=== PATIENT | female | born 1990 | race Caucasian/White ===

== ENCOUNTER 2016-06-24 18:30 | Outpatient (CLI) | payer MEDICAID ==
[2016-06-24] MEDS ORDERED: Amoxicillin 500 MG Cap PO ONE (19:46)
== END 2016-06-24 20:30 | disposition home or self-care (01) ==
LOC: MW.OB 18:30 → MW.OBCHECK 18:30
PROVIDERS: ATTEND Obstetrics & Gynecology
DX: O47.03 False labor before 37 completed weeks of gestation, third trimester (principal); O26.893 Other specified pregnancy related conditions, third trimester; M54.5 Low back pain; R51 Headache; R11.0 Nausea
CPT/HCPCS: 59025; 81003; 87086; 87088; 87186; A9270

== ENCOUNTER 2016-07-07 07:49 | Emergency (ER) | payer MEDICAID | END 2016-07-07 07:58 | disposition still patient (30) | LOC: MW.ED 07:49 ==

== ENCOUNTER 2016-07-07 08:09 | Outpatient (CLI) | payer MEDICAID ==
[2016-07-07] MEDS ORDERED: Ondansetron 4 MG Tab.DIS PO ONE (08:42)
== END 2016-07-07 10:00 | disposition home or self-care (01) ==
LOC: MW.OBCHECK 08:09 → MW.OB 08:10 → MW.OBCHECK 10:00
PROVIDERS: ATTEND Obstetrics & Gynecology
DX: Z34.83 Encounter for supervision of other normal pregnancy, third trimester (principal); R10.30 Lower abdominal pain, unspecified; R11.0 Nausea; R14.3 Flatulence; Z3A.30 30 weeks gestation of pregnancy
CPT/HCPCS: 59025; 81001; A9270

== ENCOUNTER 2016-07-13 08:06 | Observation (INO) | payer MEDICAID ==
[2016-07-13] MEDS ORDERED: Betamethasone Acetate/Betamethasone Sod Phosphate 30 MG/5 ML MDV IM SCH ×2 (09:00→10:00)
[2016-07-13] MEDS ORDERED: Lactated Ringers 1,000 ML IV ONE (09:00)
[2016-07-13] MEDS ORDERED: Calcium Gluconate 10% 1 GM/10 ML SDV IVPUSH PRN (09:48)
[2016-07-13] MEDS ORDERED: Magnesium Sulfate/Water 4 GM in Premix Bag 1 BAG IV ONE (09:48)
[2016-07-13] MEDS ORDERED: Ampicillin 2 GM in Sodium Chloride 0.9% 100 ML IV ONE (10:00)
[2016-07-13] MEDS ORDERED: Ampicillin 2 GM in Sodium Chloride 0.9% 100 ML IV SCH (10:00)
[2016-07-13] MEDS ORDERED: Magnesium Sulfate/Water 40 GM/1,000 ML BAG IV SCH (10:00)
[2016-07-13] MEDS ORDERED: Lactated Ringers 1,000 ML IV SCH (10:45)
--- NOTE | 2016-07-13 12:40 | HP ---
DATE OF : 1990 PRIMARY CARE PHYSICIAN: None PCP CHIEF COMPLAINT: contractions. HISTORY: This is a 25-year-old female. She is G3, P0-2-0-1, EDC of 08/24/2016, currently at 34 and 0/7th weeks' gestation. Her care has been with Dr. Beverly. She has a history of a at 31 and 5/7th weeks' gestation in 2012. This infant was discharged home but at 2 months of life. Her second , she received 17 hydroxyprogesterone injections. She delivered at 36 weeks' gestation with an uncomplicated vaginal delivery, however, this baby was also transferred to the NICU in [place]. In this , she has been given oral micronized progesterone. She did have a urinary tract infection in this . She has a history of a kidney infection with her prior . She is blood type O positive, antibody negative. Group B strep has not yet been done. She is immune to rubella, immune to varicella. Negative for VDRL and hepatitis and HIV. PAST MEDICAL HISTORY: Significant for pyelonephritis. PAST SURGICAL HISTORY: None. ALLERGIES: She has no known drug allergies. MEDICATIONS: Micronized progesterone 200 mg orally and vitamins. REVIEW OF SYSTEMS: HEENT: Negative for headaches or visual changes. PULMONARY: Negative. CARDIOVASCULAR: Negative. GASTROINTESTINAL: Negative. GENITOURINARY: Negative, except for the current issue with contractions. DERMATOLOGIC: Negative. MUSCULOSKELETAL: Negative. PHYSICAL EXAMINATION: VITAL SIGNS: Blood pressure is 131/88, pulse is 71, heart tones 140s, moderate variability, accelerations present, no decelerations. Contractions are every 3 to 4 minutes on initial presentation; after IV hydration, every 5-6 minutes. GENERAL: She is alert and oriented, in no acute distress. NECK: Supple without lymphadenopathy or thyromegaly. LUNGS: Clear bilaterally. CARDIOVASCULAR: Regular rate without murmur. ABDOMEN: Soft, gravid, nontender. EXTREMITIES: Show trace edema. GENITOURINARY: Vaginal exam, 3 cm, 90%, -1 station. Changed from 2 cm at the time of initial presentation. ASSESSMENT AND PLAN: Admit the patient for labor, 34 weeks' gestation, due to late . I did offer steroid for some benefit for lung maturity and she does desire to proceed. We will obtain a group B strep culture, however, start group B strep prophylaxis until culture is available. She requests transfer to [place] if is imminent. I explained to her that I must stabilize her. For stabilization for transfer, I will start her on magnesium. Her contractions must resolve with no further cervical change before transfer is possible, otherwise she would deliver here and the would be transferred. She understands this plan. ALONZO RAVI /[id number]
[2016-07-13] MEDS ORDERED: Ampicillin 1 GM in Sodium Chloride 0.9% 50 ML IV SCH (14:00)
== END 2016-07-13 16:18 ==
LOC: MW.OBCHECK 08:06 → MW.OB 08:38 → MW.OBCHECK 12:03
PROVIDERS: ADMIT Obstetrics & Gynecology; ATTEND Obstetrics & Gynecology
DX: O60.03 Preterm labor without delivery, third trimester (principal); Z3A.34 34 weeks gestation of pregnancy
CPT/HCPCS: 36415; 59025; 81001; 85027; 86850; 86900; 86901; 87081; 96372; 96374; 96375; G0378; J0290; J0702; J3475; J7030; J7120

== ENCOUNTER 2016-07-31 02:40 | Outpatient (CLI) | payer MEDICAID ==
[2016-07-31 04:10] LABS: CHLORIDE,CL 109 mmol/L (98-110); SODIUM,NA 137 mmol/L (136-146)
[2016-07-31] MEDS ORDERED: hydrOXYzine Pamoate 25 MG Cap PO ONE (04:16)
[2016-07-31] MEDS ORDERED: Acetaminophen 500 MG Tab PO ONE (04:16)
== END 2016-07-31 09:25 | disposition home or self-care (01) ==
LOC: MW.OBCHECK 02:40 → MW.OB 02:40 → MW.OBCHECK 09:25
PROVIDERS: ATTEND Obstetrics & Gynecology
DX: O36.8130 Decreased fetal movements, third trimester, not applicable or unspecified (principal); Z3A.30 30 weeks gestation of pregnancy
CPT/HCPCS: 36415; 59025; 80053; 81003; 84550; 85025; A9270

== ENCOUNTER 2016-08-05 02:32 | Inpatient (IN) | payer MEDICAID ==
[2016-08-05] MEDS ORDERED: Nalbuphine 10 MG/1 ML Vial IVPUSH PRN (03:02)
[2016-08-05] MEDS ORDERED: Water For Irrigation,Sterile 1,000 ML Container IRR PRN (03:02)
[2016-08-05] MEDS ORDERED: Butorphanol 1 MG/ML SDV IVPUSH PRN (03:02)
[2016-08-05] MEDS ORDERED: Sodium Chloride 0.9% 10 ML Syringe FLUSH PRN (03:02)
[2016-08-05] MEDS ORDERED: Sodium Chloride 0.9% 2.5 ML Syringe FLUSH PRN (03:02)
[2016-08-05] MEDS ORDERED: Misoprostol 200 MCG Tab PO PRN (03:02)
[2016-08-05] MEDS ORDERED: Methylergonovine 0.2 MG/1 ML Amp IM PRN (03:02)
[2016-08-05] MEDS ORDERED: Lidocaine 1% 50 ML MDV INJECT PRN (03:02)
[2016-08-05] MEDS ORDERED: Carboprost Tromethamine 250 MCG/1 ML Amp IM PRN (03:02)
[2016-08-05] MEDS ORDERED: Oxytocin/Lactated Ringers 30 UNIT/500 ML BAG ONE (03:08)
[2016-08-05] MEDS ORDERED: Lidocaine 1% 50 ML MDV ONE (03:09)
[2016-08-05] MEDS ORDERED: Lactated Ringers 1,000 ML IV SCH (03:15)
[2016-08-05] MEDS ORDERED: Oxytocin/Lactated Ringers 30 UNIT/500 ML BAG IV SCH (03:15)
[2016-08-05] MEDS ORDERED: Ibuprofen 400 MG Tab PO PRN (03:35)
[2016-08-05] MEDS ORDERED: Bisacodyl 10 MG Supp RECTAL PRN (03:35)
[2016-08-05] MEDS ORDERED: Docusate Sodium 100 MG Cap PO PRN (03:35)
[2016-08-05] MEDS ORDERED: Lanolin 100% Cream 7 GM Tube TOP PRN (03:35)
[2016-08-05] MEDS ORDERED: Acetaminophen 500 MG Tab PO PRN (03:35)
[2016-08-05] MEDS ORDERED: Benzocaine/Menthol 20%-0.5% Spray 78 GM Cannister TOP PRN (03:35)
[2016-08-05] MEDS ORDERED: Witch Hazel Medicated Pads 40/Jar TOP PRN (03:35)
--- NOTE | 2016-08-05 03:35 | PCM.LDHP ---
L&D History of Present Illness - General Date of Service: 08/05/16 Admit Problem/Dx: Patient Status Order with Admit Dx/Problem 08/05/16 03:02 Patient Status [ADT] Routine Admission Diagnosis/Problem Admission Diagnosis/Problem - planned Source of Information: Patient History Limitations: Reports: No limitations - History of Present Illness Improves with: Reports: None Worsens with: Reports: None Associated Symptoms: Reports: N - Related Data Allergies/Adverse Reactions: Allergies Allergy/AdvReac Type Severity Reaction Status Date / Time No Known Allergies Allergy Verified 06/24/16 17:50 Home Medications: Home Meds [id number]/Iron Fumarate/FA/DSS [ 19 Tablet] 1 tab PO DAILY 01/15/16 [ History] Progesterone,Micronized [Progesterone] 100 mg PO 06/24/16 [History] Past Medical History - Past Health History Medical/Surgical History: Denies Medical/Surgical History Cardiovascular History: Reports: None Respiratory History: Reports: None Gastrointestinal History: Reports: None Genitourinary History: Reports: UTI, recurrent [employer]CH[employer] History: Reports: Musculoskeletal History: Reports: None Neurological History: Reports: None Psychiatric History: Reports: Anxiety, Depression Endocrine/Metabolic History: Reports: None Immunologic History: Reports: None Oncologic (Cancer) History: Reports: None - Infectious Disease History Infectious Disease History: Reports: Chicken pox - Past Surgical History HEENT Surgical History: Reports: Adenoidectomy, Tonsillectomy Cardiovascular Surgical History: Reports: None Respiratory Surgical History: Reports: None GI Surgical History: Reports: None Female Surgical History: Reports: None Neurological Surgical History: Reports: None Musculoskeletal Surgical History: Reports: None Dermatological Surgical History: Reports: None Social & Family History - Family History Family Medical History: Noncontributory Endocrine/Metabolic: Reports: Diabetes, type I, Diabetes, type II Oncologic: Reports: Leukemia - Tobacco Use Smoking Status *Q: Former Smoker Years of Tobacco use: 5 Packs/Tins Daily: 0.1 Used Tobacco, but Quit: Yes Month Tobacco Last Used: 9 Second Hand Smoke Exposure: No - Caffeine Use Caffeine Use: Reports: None - Recreational Drug Use Recreational Drug Use: No H&P Review of Systems - Review of Systems: Review Of Systems: See Below General: Reports: no symptoms HEENT: Reports: no symptoms Pulmonary: Reports: No Symptoms Cardiovascular: Reports: no symptoms Gastrointestinal: Reports: No symptoms Genitourinary: Reports: no symptoms Musculoskeletal: Reports: no symptoms Skin: Reports: no symptoms Psychiatric: Reports: no symptoms Neurological: Reports: No Symptoms Hematologic/Lymphatic: Reports: no symptoms Immunologic: Reports: no symptoms L&D Exam - Exam Exam: See Below - Vital Signs Weight: 77.111 kg - OB Specific Fundal Height in cm: 37 Contraction Intensity: Moderate movement: active heart tones: present Presentation: Vertex - Patient Data Lab Results last 24 hrs: Laboratory Results - last 24 hr 08/05/16 Range/Units 03:07 WBC 11.33 H (4.0-11.0) K/uL RBC 4.42 (4.30-5.90) M/uL Hgb 10.8 L (12.0-16.0) g/dL Hct 34.2 L (36.0-46.0) % MCV 77.4 L (80.0-98.0) fL MCH 24.4 L (27.0-32.0) pg MCHC 31.6 (31.0-37.0) g/dL RDW Std Deviation 43.0 (28.0-62.0) fl RDW Coeff of Rose 15 (11.0-15.0) % Plt Count 258 (150-400) K/uL MPV 10.60 (7.40-12.00) fL Nucleated RBC % 0.0 /100WBC Nucleated RBCs # 0 K/uL Result Diagrams: 08/05/16 03:07 Problem List Initiated/Reviewed/Updated: Yes Orders Last 24hrs: Active Orders 24 hr Category Date Time Status Patient Status [ADT] Routine ADT 08/05/16 03:02 Active Heart Tones [RC] CONTINUOUS Care 08/05/16 03:02 Active Non Stress Test [RC] PER UNIT ROUTINE Care 08/05/16 03:02 Active May Shower [RC] ASDIRECTED Care 08/05/16 03:02 Active Notify Provider [RC] PRN Care 08/05/16 03:02 Active Up ad Ashtyn [RC] ASDIRECTED Care 08/05/16 03:02 Active Vaginal Exam [RC] PRN Care 08/05/16 03:02 Active Vital Signs [RC] PER UNIT ROUTINE Care 08/05/16 03:02 Active TYPE AND SCREEN [BBK] Routine Lab 08/05/16 03:07 Received Butorphanol [Stadol] Med 08/05/16 03:02 Active 1 mg IVPUSH Q1H PRN Carboprost Tromethamine [Hemabate DS] Med 08/05/16 03:02 Active 250 mcg IM ASDIRECTED PRN Lactated Ringers [Ringers, Lactated] 1,000 ml Med 08/05/16 03:15 Active IV ASDIRECTED Lidocaine 1% [Xylocaine 1%] Med 08/05/16 03:02 Active 50 ml INJECT .ONCE PRN Methylergonovine [Methergine] Med 08/05/16 03:02 Active 0.2 mg IM ASDIRECTED PRN Misoprostol [Cytotec] Med 08/05/16 03:02 Active 200 mcg PO .ONCE PRN Nalbuphine [Nubain] Med 08/05/16 03:02 Active 10 mg IVPUSH Q1H PRN Oxytocin/Lactated Ringers [Pitocin in LR 30 Units/500 Med 08/05/16 03:15 Active ML] 30 unit in 500 ml IV TITRATE Sodium Chloride 0.9% [Saline Flush] Med 08/05/16 03:02 Active 10 ml FLUSH ASDIRECTED PRN Sodium Chloride 0.9% [Saline Flush] Med 08/05/16 03:02 Active 2.5 ml FLUSH ASDIRECTED PRN Water For Irrigation,Sterile [Sterile Water for Med 08/05/16 03:02 Active Irrigation] 1,000 ml IRR ASDIRECTED PRN Scalp Electrode [WOMSER] Per Unit Routine Oth 08/05/16 03:02 Ordered Peripheral IV Insertion Adult [OM.PC] Routine Oth 08/05/16 03:02 Ordered Resuscitation Status Routine Resus Stat 08/05/16 03:02 Ordered Medication Orders Butorphanol Tartrate (Stadol) 1 mg IVPUSH Q1H PRN PRN Reason: Pain Carboprost Tromethamine (Hemabate Ds) 250 mcg IM ASDIRECTED PRN PRN Reason: Post Hemorrhage Lactated Ringer's (Ringers, Lactated) 1,000 mls @ 150 mls/hr IV ASDIRECTED MACARIO Oxytocin/Lactated Ringer's (Pitocin In Lr 30 Units/500 Ml) 30 unit in 500 mls @ 999 mls/hr IV TITRATE MACARIO PRN Reason: 999 MUNITS/MIN Stop: 08/05/16 03:46 Lidocaine HCl (Xylocaine 1%) 50 ml INJECT .ONCE PRN PRN Reason: Laceration repair Methylergonovine Maleate (Methergine) 0.2 mg IM ASDIRECTED PRN PRN Reason: Post Hemorrhage Misoprostol (Cytotec) 200 mcg PO .ONCE PRN PRN Reason: Post Hemorrhage Nalbuphine HCl (Nubain) 10 mg IVPUSH Q1H PRN PRN Reason: Pain (severe 7-10) Stop: 08/05/16 05:03 Sodium Chloride (Saline Flush) 10 ml FLUSH ASDIRECTED PRN PRN Reason: Keep Vein Open Sodium Chloride (Saline Flush) 2.5 ml FLUSH ASDIRECTED PRN PRN Reason: Keep Vein Open Sterile Water (Sterile Water For Irrigation) 1,000 ml IRR ASDIRECTED PRN PRN Reason: delivery Assessment/Plan Comment:: Term in active labor CX.8-9/v/0 intact
--- NOTE | 2016-08-05 04:18 | OR ---
SURGEON: Reza Beverly MD DATE OF PROCEDURE: DELIVERY NOTE: Ms. Cruz is a 25-year-old patient. She is para 2-0-0-2. She is followed in our clinic in this delivery primarily seen by me and primarily is followed by Sameera Bartlett. The patient had no complication. She is term. She has presented to Labor and Delivery in active labor. At the time of admission, the patient was 9 cm, complete, vertex with bulging bag of water. heart rate was category 1 and contractions are moderate to severe, tolerated very well. The patient did have an artificial rupture of the membrane by me with clear fluid and she was able to accomplish normal spontaneous vaginal delivery of a male fetus. score is reported to be 7 and 9 and the weight is 8 pounds. The placenta delivered spontaneous, complete, and intact without any problem. There was no laceration. There is no need for episiotomy. Estimated blood loss in this delivery is 250 to 300 mL. No complication. ONOFRE / TRAV /[id number]
[2016-08-05] MEDS: Acetaminophen 500 MG Tab PO PRN ×3 (05:01→21:44)
[2016-08-05] MEDS: Ibuprofen 800 MG Tab PO PRN (11:00)
[2016-08-05] MEDS: oxyCODONE 5 MG Tab PO PRN (14:01)
[2016-08-06] MEDS: Ibuprofen 800 MG Tab PO PRN (04:44)
[2016-08-06] MEDS: oxyCODONE 5 MG Tab PO PRN (04:44)
[2016-08-06 08:26] VITALS: BP 136/85
--- NOTE | 2016-08-06 11:12 | PCM.DCSUM1 ---
Discharge Summary - Discharge Data Discharge Date: 08/06/16 Discharge Disposition: Home, Self-Care 01 Condition: Good - Discharge Plan Home Medications: Home Meds GDW125/Iron Fumarate/FA/DSS [ 19 Tablet] 1 tab PO DAILY 01/15/16 [ History] Progesterone,Micronized [Progesterone] 100 mg PO 06/24/16 [History] - General Info Date of Service: 08/06/16 Functional Status: Reports: pain controlled - Review of Systems General: Reports: No Symptoms HEENT: Reports: no symptoms Pulmonary: Reports: no symptoms Cardiovascular: Reports: No Symptoms Gastrointestinal: Reports: No symptoms Genitourinary: Reports: no symptoms Musculoskeletal: Reports: no symptoms Skin: Reports: no symptoms Neurological: Reports: No Symptoms Psychiatric: Reports: no symptoms - Patient Data Vitals - Most Recent: Last Vital Signs Temp 36.5 C 08/06/16 08:00 Pulse 96 08/06/16 08:00 Resp 15 08/06/16 08:00 BP 136/85 08/06/16 08:00 Pulse Ox 96 08/06/16 08:00 Weight - Most Recent: 77.111 kg Lab Results - Last 24 hrs: Laboratory Results - last 24 hr 08/06/16 Range/Units 04:43 Hgb 10.1 L (12.0-16.0) g/dL Hct 31.6 L (36.0-46.0) % Med Orders - Current: Current Medications Acetaminophen (Tylenol Extra Strength) 500 mg PO Q4H PRN PRN Reason: Pain Last Admin: 08/05/16 14:00 Dose: 500 mg Acetaminophen (Tylenol Extra Strength) 1,000 mg PO Q4H PRN PRN Reason: Pain Last Admin: 08/05/16 21:44 Dose: 1,000 mg Benzocaine/Menthol (Dermoplast Pain Relief 20%-0.5% [place]) 78 gm TOP ASDIRECTED PRN PRN Reason: Perineal Comfort Measure Bisacodyl (Dulcolax) 10 mg RECTAL .ONCE PRN PRN Reason: Constipation Butorphanol Tartrate (Stadol) 1 mg IVPUSH Q1H PRN PRN Reason: Pain Carboprost Tromethamine (Hemabate Ds) 250 mcg IM ASDIRECTED PRN PRN Reason: Post Hemorrhage Docusate Sodium (Colace) 100 mg PO BID PRN PRN Reason: Constipation Emollient Ointment (Lansinoh Hpa) 0 gm TOP ASDIRECTED PRN PRN Reason: Sore Nipples Last Admin: 08/05/16 05:00 Dose: 1 tub Lactated Ringer's (Ringers, Lactated) 1,000 mls @ 150 mls/hr IV ASDIRECTED MACARIO Ibuprofen (Motrin) 400 mg PO Q4H PRN PRN Reason: Pain Ibuprofen (Motrin) 800 mg PO Q6H PRN PRN Reason: Pain Last Admin: 08/06/16 04:44 Dose: 800 mg Lidocaine HCl (Xylocaine 1%) 50 ml INJECT .ONCE PRN PRN Reason: Laceration repair Methylergonovine Maleate (Methergine) 0.2 mg IM ASDIRECTED PRN PRN Reason: Post Hemorrhage Misoprostol (Cytotec) 200 mcg PO .ONCE PRN PRN Reason: Post Hemorrhage Oxycodone HCl (Oxycodone) 5 mg PO Q2H PRN PRN Reason: Pain Last Admin: 08/06/16 04:44 Dose: 5 mg Sodium Chloride (Saline Flush) 10 ml FLUSH ASDIRECTED PRN PRN Reason: Keep Vein Open Sodium Chloride (Saline Flush) 2.5 ml FLUSH ASDIRECTED PRN PRN Reason: Keep Vein Open Sterile Water (Sterile Water For Irrigation) 1,000 ml IRR ASDIRECTED PRN PRN Reason: delivery Loulou [place] (Tucks) 1 pad TOP ASDIRECTED PRN PRN Reason: comfort care Discontinued Medications Oxytocin/Lactated Ringer's (Pitocin In Lr 30 Units/500 Ml) 30 unit in 500 mls @ 999 mls/hr IV TITRATE MACARIO PRN Reason: 999 MUNITS/MIN Stop: 08/05/16 03:46 Oxytocin/Lactated Ringer's (Pitocin In Lr 30 Units/500 Ml) Confirm Administered Dose 30 unit in 500 mls @ as directed .ROUTE .STK-MED ONE Stop: 08/05/16 03:09 Lidocaine HCl (Xylocaine 1%) Confirm Administered Dose 50 ml .ROUTE .STK-MED ONE Stop: 08/05/16 03:10 Nalbuphine HCl (Nubain) 10 mg IVPUSH Q1H PRN PRN Reason: Pain (severe 7-10) Stop: 08/05/16 05:03 - Exam General: Reports: alert, oriented HEENT: Reports: Pupils equal, Pupils reactive, EOMI, Mucous membr. moist/pink Neck: Reports: supple Lungs: Reports: Clear to auscultation, Normal respiratory effort Cardiovascular: Reports: Regular Rate, Regular Rhythm Abdomen: Reports: bowel sounds present, soft, no tenderness, no distension (Female) Exam: Normal external exam, Normal speculum exam, Normal bimanual exam Rectal (Female) Exam: Normal Exam, Normal rectal tone Back Exam: Reports: normal inspection, full range of motion Extremities: Reports: no edema, normal pulses Skin: Reports: warm, dry, intact Wound/Incisions: Reports: healing well Neurological: Reports: no new focal deficit Psy/Mental Status: Reports: alert, normal affect, normal mood *Q Meaningful Use (DIS) - VTE *Q VTE Criteria *Q: - Stroke *Q Stroke Criteria *Q: - AMI *Q AMI Criteria *Q:
== END 2016-08-06 16:05 | disposition home or self-care (01) | DRG 775 ==
LOC: MW.OBCHECK 02:32 → MW.OB 02:41 → MW.OBCHECK 03:02 → OBSVTOIN 03:25 → MW.OB 03:25
PROVIDERS: ADMIT Obstetrics & Gynecology; ATTEND Obstetrics & Gynecology
PROC: 10E0XZZ Delivery of Products of Conception, External Approach (ICD-10-PCS; principal; 2016-08-05)
PROC: 10907ZC Drainage of Amniotic Fluid, Therapeutic from Products of Conception, Via Natural or Artificial Opening (ICD-10-PCS; 2016-08-05)
DX: O80 Encounter for full-term uncomplicated delivery (principal); Z3A.40 40 weeks gestation of pregnancy; Z37.0 Single live birth
CPT/HCPCS: 36415; 59025; 85014; 85018; 85027; 86850; 86900; 86901; A9270-GY

== ENCOUNTER 2016-10-23 15:54 | Emergency (ER) | payer MEDICAID ==
[2016-10-23 16:32] VITALS: BP 121/77
--- NOTE | 2016-10-23 17:02 | EDM.PDOC ---
ED HPI GENERAL MEDICAL PROBLEM - General Chief Complaint: General Stated Complaint: TOOTH PAIN Time Seen by Provider: 10/23/16 16:21 - History of Present Illness INITIAL COMMENTS - FREE TEXT/NARRATIVE: HISTORY AND PHYSICAL: History of present illness: Patient is a 26-year-old female presents with concern of multiple dental caries in her right upper molars she is scheduled oral surgery appointment visit pain and swelling recently no fever chills nausea vomiting Review of systems: As per history of present illness and below otherwise all systems reviewed and negative. Past medical history: As per history of present illness and as reviewed below otherwise noncontributory. Surgical history: As per history of present illness and as reviewed below otherwise noncontributory. Social history: No reported history of drug or alcohol abuse. Family history: As per history of present illness and as reviewed below otherwise noncontributory. Physical exam: HEENT: Atraumatic, normocephalic, pupils reactive, negative for conjunctival pallor or scleral icterus, mucous membranes moist, throat clear, neck supple, nontender, trachea midline. Generally poor dentition multiple dental caries noted in the right upper molars with some gingival edema Lungs: Clear to auscultation, breath sounds equal bilaterally, chest nontender. Heart: S1S2, regular, negative for clicks, rubs, or JVD. Abdomen: Soft, nondistended, nontender. Negative for masses or hepatosplenomegaly. Negative for costovertebral tenderness. Pelvis: Stable nontender. Genitourinary: Deferred. Rectal: Deferred. Extremities: Atraumatic, negative for cords or calf pain. Neurovascular unremarkable. Neuro: Awake, alert, oriented. Cranial nerves II through XII unremarkable. Cerebellum unremarkable. Motor and sensory unremarkable throughout. Exam nonfocal. Diagnostics: None Therapeutics: None Impression: #1 dentalgia number to rule out dental abscess #3 multiple dental caries Definitive disposition and diagnosis as appropriate pending reevaluation and review of above. right upper dental Pain Score (Numeric/FACES): 10 - Related Data Allergies Allergy/AdvReac Type Severity Reaction Status Date / Time No Known Allergies Allergy Verified 10/23/16 16:25 Home Meds: Home Meds . [No Known Home Meds] 10/23/16 [History] Past Medical History - Past Health History Medical/Surgical History: Denies Medical/Surgical History Cardiovascular History: Reports: None Respiratory History: Reports: None Gastrointestinal History: Reports: None Genitourinary History: Reports: UTI, Recurrent [employer]OR History: Reports: Musculoskeletal History: Reports: None Neurological History: Reports: None Psychiatric History: Reports: Anxiety, Depression Endocrine/Metabolic History: Reports: None Immunologic History: Reports: None Oncologic (Cancer) History: Reports: None - Infectious Disease History Infectious Disease History: Reports: Chicken Pox - Past Surgical History HEENT Surgical History: Reports: Adenoidectomy, Tonsillectomy Cardiovascular Surgical History: Reports: None Respiratory Surgical History: Reports: None GI Surgical History: Reports: None Neurological Surgical History: Reports: None Musculoskeletal Surgical History: Reports: None Dermatological Surgical History: Reports: None Social & Family History - Family History Family Medical History: Noncontributory Endocrine/Metabolic: Reports: Diabetes, Type I, Diabetes, type II Oncologic: Reports: Leukemia - Tobacco Use Smoking Status *Q: Never Smoker Years of Tobacco use: 5 Packs/Tins Daily: 0.1 Used Tobacco, but Quit: Yes Month Tobacco Last Used: 9 Second Hand Smoke Exposure: No - Caffeine Use Caffeine Use: Reports: None - Recreational Drug Use Recreational Drug Use: No ED ROS GENERAL - Review of Systems Review Of Systems: ROS reveals no pertinent complaints other than HPI. ED EXAM, GENERAL - Physical Exam Exam: See Below (See dictation) Course - Vital Signs Last Recorded V/S: Last Vital Signs Temp 36.2 C 10/23/16 16:30 Pulse 82 10/23/16 16:30 Resp 18 10/23/16 16:30 BP 121/77 10/23/16 16:30 Pulse Ox 98 10/23/16 16:30 Departure - Departure Time of Disposition: 17:00 Disposition: Home, Self-Care 01 Condition: Good Clinical Impression: Dentalgia, Dental caries, Dental abscess - Discharge Information Forms: ED Department Discharge Additional Instructions: The following information is given to patients seen in the emergency department who are being discharged to home. This information is to outline your options for follow-up care. We provide all patients seen in our emergency department with a follow-up referral. The need for follow-up, as well as the timing and circumstances, are variable depending upon the specifics of your emergency department visit. If you don't have a primary care physician on staff, we will provide you with a referral. We always advise you to contact your personal physician following an emergency department visit to inform them of the circumstance of the visit and for follow-up with them and/or the need for any referrals to a consulting specialist. The emergency department will also refer you to a specialist when appropriate. This referral assures that you have the opportunity for followup care with a specialist. All of these measure are taken in an effort to provide you with optimal care, which includes your followup. Under all circumstances we always encourage you to contact your private physician who remains a resource for coordinating your care. When calling for followup care, please make the office aware that this follow-up is from your recent emergency room visit. If for any reason you are refused follow-up, please contact the [facility] emergency department at and asked to speak to the emergency department charge nurse. Kiel Murray as prescribed follow-up oral surgery/private medical doctor as scheduled return as needed as discussed
== END 2016-10-23 17:20 | disposition home or self-care (01) ==
LOC: MW.ED 15:54
DX: K04.7 Periapical abscess without sinus (principal); K02.9 Dental caries, unspecified; Z87.440 Personal history of urinary (tract) infections; Z98.890 Other specified postprocedural states
CPT/HCPCS: 99282; 99283

== ENCOUNTER 2016-12-25 09:55 | Emergency (ER) | payer MEDICAID ==
--- NOTE | 2016-12-25 10:23 | EDM.PDOC ---
ED HPI GENERAL MEDICAL PROBLEM - General Chief Complaint: ENT Problem Stated Complaint: EAR INFECTION Time Seen by Provider: 12/25/16 10:20 Source of Information: Reports: Patient History Limitations: Reports: No Limitations - History of Present Illness INITIAL COMMENTS - FREE TEXT/NARRATIVE: HISTORY AND PHYSICAL: []26-year-old female with 2 little children presents with bilateral ear pain History of Present Illness: [] She's been sick for at least a week. Children have both had cold. Review of Systems: As per history of present illness and below otherwise all systems reviewed and negative. Past medical history: As per history of present illness and as reviewed below otherwise noncontributory. Surgical history: As per history of present illness and as reviewed below otherwise noncontributory. Social history: No reported history of drug or alcohol abuse. Family history: As per history of present illness and as reviewed below otherwise noncontributory. Physical exam: Alert and oriented female who looks somewhat tired. she is nontoxic. speaking in full sentences. no shortness of breath. HEENT: Atraumatic, normocehpalic, pupils reactive, negative for conjunctival pallor or scleral icterus, mucous membranes moist, throat clear, neck supple, nontender, trachea midline. Bilateral tympanic membranes are erythematous and dull. Bulging. Lungs: Clear to auscultation, breath sounds equal bilaterally, chest non tender. Heart: S1S2, regular, negative for clicks, rubs, or JVD. Abdomen: Soft, nondistended, nontender. Negative for masses or hepatossplenmegaly. Negative for costovertebral tenderness. Pelvis: Stable nontender. Genitourinary: Deferred. Rectal: Deferred Extremities: Atraumatic, negative for cords or calf pain. Neurovascular unremarkable. Neuro: Awake, alert, oriented. Cranial nerves II through XII unremarkable. Cerebellum unremarkable. Motor and sensory unremarkable throughout. Exam nonfocal. Diagnostics: [] Therapeutics: [] Impression: [Bilateral otitis media] Plan: []Amoxicillin 875 twice a day times 10 days Definitive disposition and diagnosis as appropriate pending reevaluation and review of above. 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: Musculoskeletal History: Reports: None Neurological History: Reports: None Psychiatric History: Reports: Anxiety, Depression Endocrine/Metabolic History: Reports: None Immunologic History: Reports: None Oncologic (Cancer) History: Reports: None - Infectious Disease History Infectious Disease History: Reports: Chicken Pox - Past Surgical History HEENT Surgical History: Reports: Adenoidectomy, Tonsillectomy Cardiovascular Surgical History: Reports: None Respiratory Surgical History: Reports: None GI Surgical History: Reports: None Neurological Surgical History: Reports: None Musculoskeletal Surgical History: Reports: None Dermatological Surgical History: Reports: None Social & Family History - Family History Family Medical History: Noncontributory Endocrine/Metabolic: Reports: Diabetes, Type I, Diabetes, type II Oncologic: Reports: Leukemia - Tobacco Use Smoking Status *Q: Never Smoker Years of Tobacco use: 5 Packs/Tins Daily: 0.1 Used Tobacco, but Quit: Yes Month Tobacco Last Used: 9 Second Hand Smoke Exposure: No - Caffeine Use Caffeine Use: Reports: None - Recreational Drug Use Recreational Drug Use: No ED ROS ENT - Review of Systems Review Of Systems: ROS reveals no pertinent complaints other than HPI. ED EXAM, ENT - Physical Exam Exam: See Below (see dictation) Departure - Departure Time of Disposition: 10:22 Disposition: Home, Self-Care 01 Condition: Good Clinical Impression: Otitis media Qualifiers: Otitis media type: unspecified Chronicity: acute Laterality: unspecified laterality Qualified Code(s): H66.90 - Otitis media, unspecified, unspecified ear - Discharge Information Prescriptions: Amoxicillin 875 mg PO BID #20 tab Referrals: Da Brown MD [Primary Care Provider] -
[2016-12-25 10:43] VITALS: BP 105/55
== END 2016-12-25 10:47 | disposition home or self-care (01) ==
LOC: MW.ED 09:55
DX: H66.93 Otitis media, unspecified, bilateral (principal); Z87.440 Personal history of urinary (tract) infections; Z98.890 Other specified postprocedural states
CPT/HCPCS: 99282

== ENCOUNTER 2017-01-28 19:02 | Emergency (ER) | payer MEDICAID ==
[2017-01-28] MEDS ORDERED: Lidocaine 2% Viscous Solution 15 ML Cup PO ONE (19:31)
[2017-01-28] MEDS ORDERED: Benzocaine 20% Topical Spray UD MUCMEM ONE (19:31)
--- NOTE | 2017-01-28 19:31 | EDM.PDOC ---
ED HPI GENERAL MEDICAL PROBLEM - General Chief Complaint: ENT Problem Stated Complaint: JAW PAIN Time Seen by Provider: 01/28/17 19:25 Source of Information: Reports: Patient History Limitations: Reports: No Limitations - History of Present Illness INITIAL COMMENTS - FREE TEXT/NARRATIVE: HISTORY AND PHYSICAL: []26-year-old female presenting with jaw pain right upper at teeth #4 and 5 History of Present Illness: []Patient has stated that she needs these 2 teeth pulled out but has not been able to get to the dentist. For the last 4 hours pain has been constant Review of Systems: As per history of present illness and below otherwise all systems reviewed and negative. Past medical history: As per history of present illness and as reviewed below otherwise noncontributory. Surgical history: As per history of present illness and as reviewed below otherwise noncontributory. Social history: No reported history of drug or alcohol abuse. Family history: As per history of present illness and as reviewed below otherwise noncontributory. Physical exam: Alert and oriented female answering questions in full sentences but holds onto her mouth as she is talking. In is warm and dry HEENT: Atraumatic, normocehpalic, pupils reactive, negative for conjunctival pallor or scleral icterus, mucous membranes moist, throat clear, neck supple, nontender, trachea midline. Mild edema noted there is dental caries present to tooth #4 Lungs: Clear to auscultation, breath sounds equal bilaterally, chest non tender. Heart: S1S2, regular, negative for clicks, rubs, or JVD. Abdomen: Soft, nondistended, nontender. Negative for masses or hepatossplenmegaly. Negative for costovertebral tenderness. Pelvis: Stable nontender. Genitourinary: Deferred. Rectal: Deferred Extremities: Atraumatic, negative for cords or calf pain. Neurovascular unremarkable. Neuro: Awake, alert, oriented. Cranial nerves II through XII unremarkable. Cerebellum unremarkable. Motor and sensory unremarkable throughout. Exam nonfocal. Diagnostics: [] Therapeutics: [Dental balls Impression: [Dental caries tooth pain] Plan: []Discharged to home Follow up with dentist Amoxicillin 500 3 times a day Definitive disposition and diagnosis as appropriate pending reevaluation and review of above. 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: Musculoskeletal History: Reports: None Neurological History: Reports: None Psychiatric History: Reports: Anxiety, Depression Endocrine/Metabolic History: Reports: None Immunologic History: Reports: None Oncologic (Cancer) History: Reports: None - Infectious Disease History Infectious Disease History: Reports: Chicken Pox - Past Surgical History HEENT Surgical History: Reports: Adenoidectomy, Tonsillectomy Cardiovascular Surgical History: Reports: None Respiratory Surgical History: Reports: None GI Surgical History: Reports: None Neurological Surgical History: Reports: None Musculoskeletal Surgical History: Reports: None Dermatological Surgical History: Reports: None Social & Family History - Family History Family Medical History: Noncontributory Endocrine/Metabolic: Reports: Diabetes, Type I, Diabetes, type II Oncologic: Reports: Leukemia - Tobacco Use Smoking Status *Q: Never Smoker Years of Tobacco use: 5 Packs/Tins Daily: 0.1 Used Tobacco, but Quit: Yes Month Tobacco Last Used: 9 Second Hand Smoke Exposure: No - Caffeine Use Caffeine Use: Reports: None - Recreational Drug Use Recreational Drug Use: No ED ROS ENT - Review of Systems Review Of Systems: ROS reveals no pertinent complaints other than HPI. ED EXAM, ENT - Physical Exam Exam: See Below (See dictation) Departure - Departure Time of Disposition: 19:30 Disposition: Home, Self-Care 01 Condition: Good Clinical Impression: Dental caries, Dentalgia - Discharge Information Referrals: Da Brown MD [Primary Care Provider] - Additional Instructions: The following information is given to patients seen in the emergency department who are being discharged to home. This information is to outline your options for follow-up care. We provide all patients seen in our emergency department with a follow-up referral. The need for follow-up, as well as the timing and circumstances, are variable depending upon the specifics of your emergency department visit. If you don't have a primary care physician on staff, we will provide you with a referral. We always advise you to contact your personal physician following an emergency department visit to inform them of the circumstance of the visit and for follow-up with them and/or the need for any referrals to a consulting specialist. The emergency department will also refer you to a specialist when appropriate. This referral assures that you have the opportunity for followup care with a specialist. All of these measure are taken in an effort to provide you with optimal care, which includes your followup. Under all circumstances we always encourage you to contact your private physician who remains a resource for coordinating your care. When calling for followup care, please make the office aware that this follow-up is from your recent emergency room visit. If for any reason you are refused follow-up, please contact the [facility] emergency department at and asked to speak to the emergency department charge nurse. Follow-up with a dentist for a permanent fix Dental balls every 1-2 hours to help with pain Amoxicillin 500 mg 3 times a day 10 days
[2017-01-28 21:57] VITALS: BP 128/65
== END 2017-01-28 19:56 | disposition home or self-care (01) ==
LOC: MW.ED 19:02
DX: K02.9 Dental caries, unspecified (principal); Z87.440 Personal history of urinary (tract) infections; Z87.891 Personal history of nicotine dependence
CPT/HCPCS: 99282; A9270

== ENCOUNTER 2017-02-16 13:58 | Emergency (ER) | payer MEDICAID ==
--- NOTE | 2017-02-16 14:25 | EDM.PDOC ---
ED HPI GENERAL MEDICAL PROBLEM - General Chief Complaint: MONITORING SPECIALIST Problem Stated Complaint: BLEEDING AND Time Seen by Provider: 02/16/17 14:24 Source of Information: Reports: Patient History Limitations: Reports: No Limitations - History of Present Illness INITIAL COMMENTS - FREE TEXT/NARRATIVE: History of present illness: 26-year-old female comes in today complaining of painless vaginal bleeding. Patient indicates that by dates she is approximately 9 weeks and was to have her initial appointment with the MONITORING SPECIALIST next week but when going to the bathroom today she wiped and noticed thi red blood on the toilet paper. Patient denies any passing of clots, any cramping, or pressure. Patient states she has had 3 full-term deliveries no previous miscarriages. Review of systems: As per history of present illness and below otherwise all systems reviewed and negative. Past medical history: As per history of present illness and as reviewed below otherwise noncontributory. Surgical history: As per history of present illness and as reviewed below otherwise noncontributory. Social history: No reported history of drug or alcohol abuse. Family history: As per history of present illness and as reviewed below otherwise noncontributory. Physical exam: HEENT: Atraumatic, normocephalic, pupils reactive, negative for conjunctival pallor or scleral icterus, mucous membranes moist, throat clear, neck supple, nontender, trachea midline. Lungs: Clear to auscultation, breath sounds equal bilaterally, chest nontender. Heart: S1S2, regular, negative for clicks, rubs, or JVD. Abdomen: Soft, nondistended, nontender. Negative for masses or hepatosplenomegaly. Negative for costovertebral tenderness. Pelvis: Stable nontender. Genitourinary: Deferred. Rectal: Deferred. Extremities: Atraumatic, negative for cords or calf pain. Neurovascular unremarkable. Neuro: Awake, alert, oriented. Cranial nerves II through XII unremarkable. Cerebellum unremarkable. Motor and sensory unremarkable throughout. Exam nonfocal. Diagnostics: [CBC, UA, serum quantitative hCG, transvaginal ultrasound] Therapeutics: [IV fluid] Impression: [Threatened versus blighted ovum] Plan: [Follow-up with OB/PCP for serial quantitative hCG] Definitive disposition and diagnosis as appropriate pending reevaluation and review of above. - Related Data Allergies Allergy/AdvReac Type Severity Reaction Status Date / Time No Known Allergies Allergy Verified 02/16/17 14:28 Home Meds: Home Meds . 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: Musculoskeletal History: Reports: None Neurological History: Reports: None Psychiatric History: Reports: Anxiety, Depression Endocrine/Metabolic History: Reports: None Immunologic History: Reports: None Oncologic (Cancer) History: Reports: None - Infectious Disease History Infectious Disease History: Reports: Chicken Pox - Past Surgical History HEENT Surgical History: Reports: Adenoidectomy, Tonsillectomy Cardiovascular Surgical History: Reports: None Respiratory Surgical History: Reports: None GI Surgical History: Reports: None Neurological Surgical History: Reports: None Musculoskeletal Surgical History: Reports: None Dermatological Surgical History: Reports: None Social & Family History - Family History Family Medical History: Noncontributory Endocrine/Metabolic: Reports: Diabetes, Type I, Diabetes, type II Oncologic: Reports: Leukemia - Tobacco Use Smoking Status *Q: Never Smoker Years of Tobacco use: 5 Packs/Tins Daily: 0.1 Used Tobacco, but Quit: Yes Month Tobacco Last Used: 9 Second Hand Smoke Exposure: No - Caffeine Use Caffeine Use: Reports: Soda - Recreational Drug Use Recreational Drug Use: No ED ROS GENERAL - Review of Systems Review Of Systems: See Below (History of present illness) ED EXAM - Physical Exam Exam: See Below (See history of present illness) Course - Vital Signs Last Recorded V/S: Last Vital Signs Temp 36.4 C 02/16/17 14:27 Pulse 99 02/16/17 14:27 Resp 16 02/16/17 14:27 BP 124/64 02/16/17 14:27 Pulse Ox 99 02/16/17 14:27 - Orders/Labs/Meds Orders: Active Orders 24 hr Category Date Time Status CMP [COMPREHENSIVE METABOLIC PN,CMP] [CHEM] Stat Lab 02/16/17 14:27 Results HCG QUANTITATIVE,SERUM [CHEM] Stat Lab 02/16/17 14:27 Results UA W/MICROSCOPIC [URIN] Stat Lab 02/16/17 14:33 Ordered Sodium Chloride 0.9% [Normal Saline] 1,000 ml Med 02/16/17 14:37 Active IV STAT Medication Orders Sodium Chloride (Normal Saline) 1,000 mls @ 999 mls/hr IV STAT ONE Stop: 02/16/17 15:37 Last Admin: 02/16/17 15:11 Dose: 999 mls/hr Labs: Laboratory Tests 02/16/17 02/16/17 02/16/17 Range/Units 14:27 14:27 14:27 WBC 6.22 (4.0-11.0) K/uL RBC 4.59 (4.30-5.90) M/uL Hgb 12.0 (12.0-16.0) g/dL Hct 36.9 (36.0-46.0) % MCV 80.4 (80.0-98.0) fL MCH 26.1 L (27.0-32.0) pg MCHC 32.5 (31.0-37.0) g/dL RDW Std Deviation 42.8 (28.0-62.0) fl RDW Coeff of Rose 15 (11.0-15.0) % Plt Count 222 (150-400) K/uL MPV 9.00 (7.40-12.00) fL Neut % (Auto) 67.6 (48.0-80.0) % Lymph % (Auto) 23.3 (16.0-40.0) % [place] % (Auto) 8.5 (0.0-15.0) % Eos % (Auto) 0.3 (0.0-7.0) % Baso % (Auto) 0.3 (0.0-1.5) % Neut # (Auto) 4.2 (1.4-5.7) K/uL Lymph # (Auto) 1.5 (0.6-2.4) K/uL [place] # (Auto) 0.5 (0.0-0.8) K/uL Eos # (Auto) 0.0 (0.0-0.7) K/uL Baso # (Auto) 0.0 (0.0-0.1) K/uL Nucleated RBC % 0.0 /100WBC Nucleated RBCs # 0 K/uL Sodium 138 (136-146) mmol/L Potassium 4.0 (3.5-5.1) mmol/L Chloride 107 (98-110) mmol/L Carbon Dioxide 22 (21-31) mmol/L BUN 13 (6.0-23.0) mg/dL Creatinine 0.9 (0.6-1.5) mg/dL Est Cr Clr Drug Dosing 90.23 mL/min Estimated GFR (MDRD) > 60.0 ml/min Glucose 76 (60-110) mg/dL Calcium 9.4 (8.8-10.8) mg/dL Total Bilirubin 0.5 (0.1-1.5) mg/dL AST 22 (5-40) IU/L ALT 22 (8-54) IU/L Alkaline Phosphatase 55 (40-150) Total Protein 7.4 (6.0-8.0) g/dL Albumin 4.1 (3.5-5.0) g/dL Globulin 3.3 (2.0-3.5) g/dL Albumin/Globulin Ratio 1.2 L (1.3-2.8) Blood Type A POSITIVE Meds: Medications Generic Name Dose Route Start Last Admin Trade Name Freq PRN Reason Stop Dose Admin Sodium Chloride 1,000 mls @ 999 mls/hr 02/16/17 14:37 02/16/17 15:11 Normal Saline IV 02/16/17 15:37 999 mls/hr STAT ONE Administration Departure - Departure Time of Disposition: 15:35 Disposition: Home, Self-Care 01 Condition: Good Clinical Impression: Threatened - Discharge Information Referrals: Da Brown MD [Primary Care Provider] - Forms: ED Department Discharge Additional Instructions: The following information is given to patients seen in the emergency department who are being discharged to home. This information is to outline your options for follow-up care. We provide all patients seen in our emergency department with a follow-up referral. The need for follow-up, as well as the timing and circumstances, are variable depending upon the specifics of your emergency department visit. If you don't have a primary care physician on staff, we will provide you with a referral. We always advise you to contact your personal physician following an emergency department visit to inform them of the circumstance of the visit and for follow-up with them and/or the need for any referrals to a consulting specialist. The emergency department will also refer you to a specialist when appropriate. This referral assures that you have the opportunity for follow-up care with a specialist. All of these measure are taken in an effort to provide you with optimal care, which includes your follow-up. Under all circumstances we always encourage you to contact your private physician who remains a resource for coordinating your care. When calling for follow-up care, please make the office aware that this follow-up is from your recent emergency room visit. If for any reason you are refused follow-up, please contact the [facility] Emergency Department at and asked to speak to the emergency department charge nurse. Follow-up with OB/and/or ER in 48-72 hours for serial quantitative hCG Return to ED as needed as discussed - My Orders Last 24 Hours: My Active Orders 02/16/17 14:27 CMP [COMPREHENSIVE METABOLIC PN,CMP] [CHEM] Stat HCG QUANTITATIVE,SERUM [CHEM] Stat 02/16/17 14:33 UA W/MICROSCOPIC [URIN] Stat 02/16/17 14:37 Sodium Chloride 0.9% [Normal Saline] 1,000 ml IV STAT - Assessment/Plan Last 24 Hours: My Active Orders 02/16/17 14:27 CMP [COMPREHENSIVE METABOLIC PN,CMP] [CHEM] Stat HCG QUANTITATIVE,SERUM [CHEM] Stat 02/16/17 14:33 UA W/MICROSCOPIC [URIN] Stat 02/16/17 14:37 Sodium Chloride 0.9% [Normal Saline] 1,000 ml IV STAT
[2017-02-16] MEDS ORDERED: Sodium Chloride 0.9% 1,000 ML IV ONE (14:37)
[2017-02-16 15:03] LABS: CHLORIDE,CL 107 mmol/L (98-110); SODIUM,NA 138 mmol/L (136-146)
--- NOTE | 2017-02-16 15:17 | US ---
EXAMINATION: Transvaginal obstetric ultrasound HISTORY: Bleeding COMPARISON: 01/19/2017 TECHNIQUE: Grayscale, color Doppler, and spectral Doppler images obtained. FINDINGS: There is an intrauterine gestational sac with a small yolk sac noted. There is a possible t iny pole with an amnionic sac noted separate from the yolk sac. Powell-rump length measures 0.3 cm. The mean sac diameter is 2 cm. This may to gestational age by mean sac diameter is 7 weeks and 2 days however only 5 weeks and 6 days by crown-rump length. Overall this gives an estimated gestationa l age at 6 weeks and 0 days. The estimated date of delivery is 10/12/2017. There has been little hampton ge in the crown-rump length from the prior ultrasound 5 weeks ago. Both the left and right ovaries are normal in size, contour, and echogenicity without a focal hepatic mass. IMPRESSION: 1. Intrauterine gestational sac identified however insignificant growth of the crown-rump length is n oted since 01/19/2017. This likely represents a blighted ovum. Correlate with beta hCG levels.
[2017-02-16 16:17] VITALS: BP 123/69
== END 2017-02-16 16:05 | disposition home or self-care (01) ==
LOC: MW.ED 13:58
DX: O20.0 Threatened abortion (principal); Z3A.09 9 weeks gestation of pregnancy
CPT/HCPCS: 36415; 76801; 80053; 81001; 84702; 85025; 86900; 86901; 96360; 99284; J7040; 99282

== ENCOUNTER 2017-02-26 20:48 | Emergency (ER) | payer MEDICAID ==
--- NOTE | 2017-02-26 22:09 | EDM.PDOC ---
ED HPI GENERAL MEDICAL PROBLEM - General Chief Complaint: Genitourinary Problem Stated Complaint: POSSIBLE UTI Time Seen by Provider: 02/26/17 21:07 Source of Information: Reports: Patient History Limitations: Reports: No Limitations - History of Present Illness INITIAL COMMENTS - FREE TEXT/NARRATIVE: History of present illness: 26-year-old female comes in complaining of urgency burning and frequency] Review of systems: As per history of present illness and below otherwise all systems reviewed and negative. Past medical history: As per history of present illness and as reviewed below otherwise noncontributory. Surgical history: As per history of present illness and as reviewed below otherwise noncontributory. Social history: No reported history of drug or alcohol abuse. Family history: As per history of present illness and as reviewed below otherwise noncontributory. Physical exam: HEENT: Atraumatic, normocephalic, pupils reactive, negative for conjunctival pallor or scleral icterus, mucous membranes moist, throat clear, neck supple, nontender, trachea midline. Lungs: Clear to auscultation, breath sounds equal bilaterally, chest nontender. Heart: S1S2, regular, negative for clicks, rubs, or JVD. Abdomen: Soft, nondistended, nontender. Negative for masses or hepatosplenomegaly. Negative for costovertebral tenderness. Pelvis: Stable nontender. Genitourinary: Deferred. Rectal: Deferred. Extremities: Atraumatic, negative for cords or calf pain. Neurovascular unremarkable. Neuro: Awake, alert, oriented. Cranial nerves II through XII unremarkable. Cerebellum unremarkable. Motor and sensory unremarkable throughout. Exam nonfocal. Global assessment is benign save the subjective complaint as noted in history of present illness Diagnostics: [UA] Therapeutics: [] Impression: [UTI] Plan: [Keflex] Definitive disposition and diagnosis as appropriate pending reevaluation and review of above. hypogastric Pain Score (Numeric/FACES): 9 - Related Data Allergies Allergy/AdvReac Type Severity Reaction Status Date / Time No Known Allergies Allergy Verified 02/26/17 20:56 Home Meds: Home Meds Cephalexin [Keflex] 500 mg PO QID #40 capsule 02/26/17 [Rx] Past Medical History - Past Health History Medical/Surgical History: Denies Medical/Surgical History HEENT History: Reports: Other (See Below) Other HEENT History: broken teeth and carries Cardiovascular History: Reports: None Respiratory History: Reports: None Gastrointestinal History: Reports: None Genitourinary History: Reports: UTI, Recurrent [employer] History: Reports: Musculoskeletal History: Reports: None Neurological History: Reports: None Psychiatric History: Reports: Anxiety, Depression Endocrine/Metabolic History: Reports: None Immunologic History: Reports: None Oncologic (Cancer) History: Reports: None - Infectious Disease History Infectious Disease History: Reports: Chicken Pox - Past Surgical History HEENT Surgical History: Reports: Adenoidectomy, Tonsillectomy Cardiovascular Surgical History: Reports: None Respiratory Surgical History: Reports: None GI Surgical History: Reports: None Neurological Surgical History: Reports: None Musculoskeletal Surgical History: Reports: None Dermatological Surgical History: Reports: None Social & Family History - Family History Family Medical History: Noncontributory Endocrine/Metabolic: Reports: Diabetes, Type I, Diabetes, type II Oncologic: Reports: Leukemia - Tobacco Use Smoking Status *Q: Never Smoker Years of Tobacco use: 5 Packs/Tins Daily: 0.1 Used Tobacco, but Quit: Yes Month Tobacco Last Used: 9 Second Hand Smoke Exposure: No - Caffeine Use Caffeine Use: Reports: Soda - Recreational Drug Use Recreational Drug Use: No ED ROS GENERAL - Review of Systems Review Of Systems: See Below (See history of present illness) ED EXAM, GENERAL - Physical Exam Exam: See Below (History of present illness) Course - Vital Signs Last Recorded V/S: Last Vital Signs Temp 36.3 C 02/26/17 20:48 Pulse 97 02/26/17 20:48 Resp 16 02/26/17 20:48 BP 129/77 02/26/17 20:48 Pulse Ox 97 02/26/17 20:48 - Orders/Labs/Meds Labs: Laboratory Tests 02/26/17 Range/Units 21:29 Urine Color YELLOW Urine Appearance SLT CLOUDY Urine pH 6.0 (5.0-8.0) Ur Specific [place] 1.025 (1.001-1.035) Urine Protein NEGATIVE (NEGATIVE) mg/dL Urine Glucose (UA) NEGATIVE (NEGATIVE) mg/dL Urine Ketones NEGATIVE (NEGATIVE) mg/dL Urine Occult Blood SMALL H (NEGATIVE) Urine Nitrite NEGATIVE (NEGATIVE) Urine Bilirubin NEGATIVE (NEGATIVE) Urine Urobilinogen 0.2 (<2.0) EU/dL Ur Leukocyte Esterase TRACE (NEGATIVE) Urine RBC 0-2 (0-2/HPF) Urine WBC 10-15 (0-5/HPF) Ur Epithelial Cells FEW (NONE-FEW) Urine Bacteria FEW (NEGATIVE) Departure - Departure Time of Disposition: 22:08 Disposition: Home, Self-Care 01 Condition: Good Clinical Impression: UTI (urinary tract infection) Qualifiers: Urinary tract infection type: site unspecified Hematuria presence: without hematuria Qualified Code(s): N39.0 - Urinary tract infection, site not specified - Discharge Information Prescriptions: Cephalexin [Keflex] 500 mg PO QID #40 capsule Referrals: PCP,None [Primary Care Provider] - Additional Instructions: The following information is given to patients seen in the emergency department who are being discharged to home. This information is to outline your options for follow-up care. We provide all patients seen in our emergency department with a follow-up referral. The need for follow-up, as well as the timing and circumstances, are variable depending upon the specifics of your emergency department visit. If you don't have a primary care physician on staff, we will provide you with a referral. We always advise you to contact your personal physician following an emergency department visit to inform them of the circumstance of the visit and for follow-up with them and/or the need for any referrals to a consulting specialist. The emergency department will also refer you to a specialist when appropriate. This referral assures that you have the opportunity for follow-up care with a specialist. All of these measure are taken in an effort to provide you with optimal care, which includes your follow-up. Under all circumstances we always encourage you to contact your private physician who remains a resource for coordinating your care. When calling for follow-up care, please make the office aware that this follow-up is from your recent emergency room visit. If for any reason you are refused follow-up, please contact the [facility] Emergency Department at and asked to speak to the emergency department charge nurse. Take medication as directed Follow-up with PCP 1-2 days Return to ED as needed as discussed
[2017-02-27 03:34] VITALS: BP 126/68
== END 2017-02-26 22:24 | disposition home or self-care (01) ==
LOC: MW.ED 20:48
DX: N39.0 Urinary tract infection, site not specified (principal); Z87.891 Personal history of nicotine dependence
CPT/HCPCS: 81001; 99282; 99283

== ENCOUNTER 2017-05-29 20:55 | Emergency (ER) | payer MEDICAID ==
--- NOTE | 2017-05-29 21:22 | EDM.PDOC ---
ED HPI GENERAL MEDICAL PROBLEM - General Chief Complaint: ENT Problem Stated Complaint: TOOTH PAIN Time Seen by Provider: 05/29/17 21:16 - History of Present Illness INITIAL COMMENTS - FREE TEXT/NARRATIVE: HISTORY AND PHYSICAL: History of present illness: Patient is 26-year-old female transferring concern of dental pain she has multiple dental caries and has pain of her right lower molar for which she does have scheduled dental follow-up. She denies fever chills nausea vomiting or other complaints Review of systems: As per history of present illness and below otherwise all systems reviewed and negative. Past medical history: As per history of present illness and as reviewed below otherwise noncontributory. Surgical history: As per history of present illness and as reviewed below otherwise noncontributory. Social history: No reported history of drug or alcohol abuse. Family history: As per history of present illness and as reviewed below otherwise noncontributory. Physical exam: HEENT: Atraumatic, normocephalic, pupils reactive, negative for conjunctival pallor or scleral icterus, mucous membranes moist, throat clear, neck supple, nontender, trachea midline. Multiple dental caries noted with gingival swelling around her right lower molar. Lungs: Clear to auscultation, breath sounds equal bilaterally, chest nontender. Heart: S1S2, regular, negative for clicks, rubs, or JVD. Abdomen: Soft, nondistended, nontender. Negative for masses or hepatosplenomegaly. Negative for costovertebral tenderness. Pelvis: Stable nontender. Genitourinary: Deferred. Rectal: Deferred. Extremities: Atraumatic, negative for cords or calf pain. Neurovascular unremarkable. Neuro: Awake, alert, oriented. Cranial nerves II through XII unremarkable. Cerebellum unremarkable. Motor and sensory unremarkable throughout. Exam nonfocal. Diagnostics: None Therapeutics: None Impression: #1 dentalgia #2 dental caries rule out dental abscess Definitive disposition and diagnosis as appropriate pending reevaluation and review of above. tooth Pain Score (Numeric/FACES): 10 - Related Data Allergies Allergy/AdvReac Type Severity Reaction Status Date / Time No Known Allergies Allergy Verified 05/29/17 21:05 Home Meds: Home Meds . [No Known Home Meds] 05/29/17 [History] Past Medical History - Past Health History Medical/Surgical History: Denies Medical/Surgical History HEENT History: Reports: Other (See Below) Other HEENT History: broken teeth and carries Cardiovascular History: Reports: None Respiratory History: Reports: None Gastrointestinal History: Reports: None Genitourinary History: Reports: UTI, Recurrent [employer]ER History: Reports: Musculoskeletal History: Reports: None Neurological History: Reports: None Psychiatric History: Reports: Anxiety, Depression Endocrine/Metabolic History: Reports: None Immunologic History: Reports: None Oncologic (Cancer) History: Reports: None - Infectious Disease History Infectious Disease History: Reports: Chicken Pox - Past Surgical History HEENT Surgical History: Reports: Adenoidectomy, Tonsillectomy Cardiovascular Surgical History: Reports: None Respiratory Surgical History: Reports: None GI Surgical History: Reports: None Neurological Surgical History: Reports: None Musculoskeletal Surgical History: Reports: None Dermatological Surgical History: Reports: None Social & Family History - Family History Family Medical History: Noncontributory Endocrine/Metabolic: Reports: Diabetes, Type I, Diabetes, type II Oncologic: Reports: Leukemia - Tobacco Use Smoking Status *Q: Never Smoker Years of Tobacco use: 5 Packs/Tins Daily: 0.1 Used Tobacco, but Quit: Yes Month Tobacco Last Used: 9 Second Hand Smoke Exposure: No - Caffeine Use Caffeine Use: Reports: Soda - Recreational Drug Use Recreational Drug Use: No ED ROS GENERAL - Review of Systems Review Of Systems: ROS reveals no pertinent complaints other than HPI. ED EXAM, GENERAL - Physical Exam Exam: See Below (Dictation) Course - Vital Signs Last Recorded V/S: Last Vital Signs Temp 36.2 C 05/29/17 20:55 Pulse 80 05/29/17 20:55 Resp 18 05/29/17 20:55 BP 132/78 05/29/17 20:55 Pulse Ox 96 05/29/17 20:55 Departure - Departure Time of Disposition: 21:21 Disposition: Home, Self-Care 01 Condition: Good Clinical Impression: Dental abscess, Dentalgia, Dental caries - Discharge Information Referrals: PCP,None [Primary Care Provider] - Additional Instructions: The following information is given to patients seen in the emergency department who are being discharged to home. This information is to outline your options for follow-up care. We provide all patients seen in our emergency department with a follow-up referral. The need for follow-up, as well as the timing and circumstances, are variable depending upon the specifics of your emergency department visit. If you don't have a primary care physician on staff, we will provide you with a referral. We always advise you to contact your personal physician following an emergency department visit to inform them of the circumstance of the visit and for follow-up with them and/or the need for any referrals to a consulting specialist. The emergency department will also refer you to a specialist when appropriate. This referral assures that you have the opportunity for followup care with a specialist. All of these measure are taken in an effort to provide you with optimal care, which includes your followup. Under all circumstances we always encourage you to contact your private physician who remains a resource for coordinating your care. When calling for followup care, please make the office aware that this follow-up is from your recent emergency room visit. If for any reason you are refused follow-up, please contact the [facility] emergency department at and asked to speak to the emergency department charge nurse. Pen-Vee K as prescribed Motrin/Tylenol as directed follow up with dentist as scheduled return as needed as discussed
[2017-05-30 04:19] VITALS: BP 110/67
== END 2017-05-29 21:32 | disposition home or self-care (01) ==
LOC: MW.ED 20:55
DX: K04.7 Periapical abscess without sinus (principal); K02.9 Dental caries, unspecified; Z87.440 Personal history of urinary (tract) infections
CPT/HCPCS: 99282

== ENCOUNTER 2017-11-05 18:50 | Emergency (ER) | payer MEDICAID ==
[2017-11-05] MEDS ORDERED: Sodium Chloride 0.9% 2.5 ML Syringe FLUSH PRN (19:07)
[2017-11-05] MEDS ORDERED: Sodium Chloride 0.9% 1,000 ML IV ONE (19:07)
[2017-11-05] MEDS ORDERED: Sodium Chloride 0.9% 10 ML Syringe FLUSH PRN (19:07)
--- NOTE | 2017-11-05 19:33 | EDM.PDOC ---
ED HPI GENERAL MEDICAL PROBLEM - General Chief Complaint: Abdominal Pain Stated Complaint: DAZZY AND STOMACH PAIN Time Seen by Provider: 11/05/17 21:26 Source of Information: Reports: Patient History Limitations: Reports: No Limitations - History of Present Illness INITIAL COMMENTS - FREE TEXT/NARRATIVE: HISTORY AND PHYSICAL: History of present illness: [Nancy is a 27-year-old female here for abdominal pain and nausea. She reports that 3 days ago she had an episode of syncope. She states she had just gotten in her aunt's car after being outside in the heat. She took a drink of a pop and felt a burning sensation in her lower chest then was told by her aunt that she passed out briefly. She denies any head injury at this time. She states that since then she has not been feeling well. She is having mild upper abdominal pain that occurs after eating. She states she is still feeling a little light-headed, worse when she is outside in the heat. LMP approximately 2 months ago. ] Review of systems: As per history of present illness and below otherwise all systems reviewed and negative. Past medical history: As per history of present illness and as reviewed below otherwise noncontributory. Surgical history: As per history of present illness and as reviewed below otherwise noncontributory. Social history: No reported history of drug or alcohol abuse. Family history: As per history of present illness and as reviewed below otherwise noncontributory. Physical exam: General: lying comfortably in no acute distress HEENT: Atraumatic, normocephalic, pupils reactive, negative for conjunctival pallor or scleral icterus, mucous membranes moist, throat clear, neck supple, nontender, trachea midline. Lungs: Clear to auscultation, breath sounds equal bilaterally, chest nontender. Heart: S1S2, regular, negative for clicks, rubs, or JVD. Abdomen: Soft, nondistended, nontender. Negative for masses or hepatosplenomegaly. Negative for costovertebral tenderness. Pelvis: Stable nontender. Genitourinary: Deferred. Rectal: Deferred. Extremities: Atraumatic, negative for cords or calf pain. Neurovascular unremarkable. Neuro: Awake, alert, oriented. Cranial nerves II through XII unremarkable. Cerebellum unremarkable. Motor and sensory unremarkable throughout. Exam nonfocal. Notes: Diagnostics: [CBC, CMP, Troponin, UA, urine hcg EKG - NSR, no ST-T wave changes Pelvic US - live intrauterine RUQ US ] Therapeutics: [1L IV normal saline 4mg IV zofran] Keflex 500mg BID x 7 days Impression: [UTI ] Plan: [#1 Take antibiotic as instructed #2 Follow up with Aspnet Developer #3 Return to ED as needed as discussed. Definitive disposition and diagnosis as appropriate pending reevaluation and review of above. abdomen Pain Score (Numeric/FACES): 8 - Related Data Allergies Allergy/AdvReac Type Severity Reaction Status Date / Time No Known Allergies Allergy Verified 11/05/17 18:56 Home Meds: Home Meds Iron 0 mg PO DAILY 11/05/17 [History] Past Medical History - Past Health History Medical/Surgical History: Denies Medical/Surgical History HEENT History: Reports: Other (See Below) Other HEENT History: broken teeth and carries Cardiovascular History: Reports: None Respiratory History: Reports: Asthma, Other (See Below) Other Respiratory History: Sport's induced asthma Gastrointestinal History: Reports: None Genitourinary History: Reports: UTI, Recurrent 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: Musculoskeletal History: Reports: None Neurological History: Reports: None Psychiatric History: Reports: Anxiety, Depression Endocrine/Metabolic History: Reports: None Immunologic History: Reports: None Oncologic (Cancer) History: Reports: None - Infectious Disease History Infectious Disease History: Reports: Chicken Pox - Past Surgical History HEENT Surgical History: Reports: Adenoidectomy, Tonsillectomy Cardiovascular Surgical History: Reports: None Respiratory Surgical History: Reports: None GI Surgical History: Reports: None Neurological Surgical History: Reports: None Musculoskeletal Surgical History: Reports: None Dermatological Surgical History: Reports: None Social & Family History - Family History Family Medical History: Noncontributory Endocrine/Metabolic: Reports: Diabetes, Type I, Diabetes, type II Oncologic: Reports: Leukemia - Tobacco Use Smoking Status *Q: Current Every Day Smoker Years of Tobacco use: 1 Packs/Tins Daily: 1 - Caffeine Use Caffeine Use: Reports: Soda - Recreational Drug Use Recreational Drug Use: No ED ROS GENERAL - Review of Systems Review Of Systems: ROS reveals no pertinent complaints other than HPI. ED EXAM, GI/ABD - Physical Exam Exam: See Below (see dictation) Course - Vital Signs Last Recorded V/S: Last Vital Signs Temp 36.3 C 11/05/17 19:00 Pulse 90 11/05/17 19:00 Resp 16 11/05/17 19:00 BP 117/61 11/05/17 19:00 Pulse Ox 98 11/05/17 19:00 - Orders/Labs/Meds Orders: Active Orders 24 hr Category Date Time Status EKG Documentation Completion [RC] STAT Care 11/05/17 19:08 Active Abdomen Ltd [US] Stat Exams 11/05/17 20:28 Ordered OB Transvaginal [US] Stat Exams 11/05/17 20:28 Taken HCG QUALITATIVE,URINE [URCHEM] Stat Lab 11/05/17 19:10 Ordered UA W/MICROSCOPIC [URIN] Stat Lab 11/05/17 19:10 Ordered Sodium Chloride 0.9% [Saline Flush] Med 11/05/17 19:07 Active 10 ml FLUSH ASDIRECTED PRN Sodium Chloride 0.9% [Saline Flush] Med 11/05/17 19:07 Active 2.5 ml FLUSH ASDIRECTED PRN Saline Lock Insert [OM.PC] Stat Oth 11/05/17 19:07 Ordered Medication Orders Sodium Chloride (Saline Flush) 10 ml FLUSH ASDIRECTED PRN PRN Reason: Keep Vein Open Sodium Chloride (Saline Flush) 2.5 ml FLUSH ASDIRECTED PRN PRN Reason: Keep Vein Open Labs: Laboratory Tests 11/05/17 11/05/17 11/05/17 Range/Units 19:10 19:10 19:15 WBC 7.94 (4.0-11.0) K/uL RBC 4.64 (4.30-5.90) M/uL Hgb 11.8 L (12.0-16.0) g/dL Hct 35.7 L (36.0-46.0) % MCV 76.9 L (80.0-98.0) fL MCH 25.4 L (27.0-32.0) pg MCHC 33.1 (31.0-37.0) g/dL RDW Std Deviation 42.4 (28.0-62.0) fl RDW Coeff of Rose 15 (11.0-15.0) % Plt Count 225 (150-400) K/uL MPV 9.50 (7.40-12.00) fL Neut % (Auto) 66.7 (48.0-80.0) % Lymph % (Auto) 23.0 (16.0-40.0) % Da[place]hin % (Auto) 9.8 (0.0-15.0) % Eos % (Auto) 0.4 (0.0-7.0) % Baso % (Auto) 0.1 (0.0-1.5) % Neut # (Auto) 5.3 (1.4-5.7) K/uL Lymph # (Auto) 1.8 (0.6-2.4) K/uL [place] # (Auto) 0.8 (0.0-0.8) K/uL Eos # (Auto) 0.0 (0.0-0.7) K/uL Baso # (Auto) 0.0 (0.0-0.1) K/uL Nucleated RBC % 0.0 /100WBC Nucleated RBCs # 0 K/uL Sodium (136-145) mmol/L Potassium (3.5-5.1) mmol/L Chloride (98-107) mmol/L Carbon Dioxide (21.0-32.0) mmol/L BUN (7.0-18.0) mg/dL Creatinine (0.6-1.0) mg/dL Est Cr Clr Drug Dosing mL/min Estimated GFR (MDRD) ml/min Glucose (74-106) mg/dL Calcium (8.5-10.1) mg/dL Total Bilirubin (0.2-1.0) mg/dL AST (15-37) IU/L ALT (14-63) IU/L Alkaline Phosphatase (46-116) U/L Troponin I (0.000-0.056) ng/mL Total Protein (6.4-8.2) g/dL Albumin (3.4-5.0) g/dL Globulin (2.0-3.5) g/dL Albumin/Globulin Ratio (1.3-2.8) Lipase (73-393) U/L HCG, Quant mIU/mL Urine Color YELLOW Urine Appearance CLEAR Urine pH 5.5 (5.0-8.0) Ur Specific [place]den >= 1.030 (1.001-1.035) Urine Protein NEGATIVE (NEGATIVE) mg/dL Urine Glucose (UA) NEGATIVE (NEGATIVE) mg/dL Urine Ketones TRACE H (NEGATIVE) mg/dL Urine Occult Blood NEGATIVE (NEGATIVE) Urine Nitrite POSITIVE H (NEGATIVE) Urine Bilirubin NEGATIVE (NEGATIVE) Urine Urobilinogen 0.2 (<2.0) EU/dL Ur Leukocyte Esterase TRACE (NEGATIVE) Urine RBC 0-2 (0-2/HPF) Urine WBC 6-8 (0-5/HPF) Ur Epithelial Cells FEW (NONE-FEW) Calcium Oxalate Crystal MODERATE (NEGATIVE) Urine Bacteria 1+ H (NEGATIVE) Urine HCG, Qual POSITIVE (NEGATIVE) 11/05/17 11/05/17 Range/Units 19:15 19:15 WBC (4.0-11.0) K/uL RBC (4.30-5.90) M/uL Hgb (12.0-16.0) g/dL Hct (36.0-46.0) % MCV (80.0-98.0) fL MCH (27.0-32.0) pg MCHC (31.0-37.0) g/dL RDW Std Deviation (28.0-62.0) fl RDW Coeff of Rose (11.0-15.0) % Plt Count (150-400) K/uL MPV (7.40-12.00) fL Neut % (Auto) (48.0-80.0) % Lymph % (Auto) (16.0-40.0) % [place]hin % (Auto) (0.0-15.0) % Eos % (Auto) (0.0-7.0) % Baso % (Auto) (0.0-1.5) % Neut # (Auto) (1.4-5.7) K/uL Lymph # (Auto) (0.6-2.4) K/uL [place] # (Auto) (0.0-0.8) K/uL Eos # (Auto) (0.0-0.7) K/uL Baso # (Auto) (0.0-0.1) K/uL Nucleated RBC % /100WBC Nucleated RBCs # K/uL Sodium 136 (136-145) mmol/L Potassium 3.8 (3.5-5.1) mmol/L Chloride 104 (98-107) mmol/L Carbon Dioxide 23.7 (21.0-32.0) mmol/L BUN 11 (7.0-18.0) mg/dL Creatinine 0.9 (0.6-1.0) mg/dL Est Cr Clr Drug Dosing 89.45 mL/min Estimated GFR (MDRD) > 60.0 ml/min Glucose 83 (74-106) mg/dL Calcium 8.2 L (8.5-10.1) mg/dL Total Bilirubin 0.2 (0.2-1.0) mg/dL AST 15 (15-37) IU/L ALT 19 (14-63) IU/L Alkaline Phosphatase 51 (46-116) U/L Troponin I < 0.050 (0.000-0.056) ng/mL Total Protein 6.9 (6.4-8.2) g/dL Albumin 3.7 (3.4-5.0) g/dL Globulin 3.2 (2.0-3.5) g/dL Albumin/Globulin Ratio 1.2 L (1.3-2.8) Lipase 188 (73-393) U/L HCG, Quant 627789.0 mIU/mL Urine Color Urine Appearance Urine pH (5.0-8.0) Ur Specific [place] (1.001-1.035) Urine Protein (NEGATIVE) mg/dL Urine Glucose (UA) (NEGATIVE) mg/dL Urine Ketones (NEGATIVE) mg/dL Urine Occult Blood (NEGATIVE) Urine Nitrite (NEGATIVE) Urine Bilirubin (NEGATIVE) Urine Urobilinogen (<2.0) EU/dL Ur Leukocyte Esterase (NEGATIVE) Urine RBC (0-2/HPF) Urine WBC (0-5/HPF) Ur Epithelial Cells (NONE-FEW) Calcium Oxalate Crystal (NEGATIVE) Urine Bacteria (NEGATIVE) Urine HCG, Qual (NEGATIVE) Meds: Medications Generic Name Dose Route Start Last Admin Trade Name Freq PRN Reason Stop Dose Admin Sodium Chloride 10 ml 11/05/17 19:07 Saline Flush FLUSH ASDIRECTED PRN Keep Vein Open Sodium Chloride 2.5 ml 11/05/17 19:07 Saline Flush FLUSH ASDIRECTED PRN Keep Vein Open Discontinued Medications Generic Name Dose Route Start Last Admin Trade Name Freq PRN Reason Stop Dose Admin Sodium Chloride 1,000 mls @ 999 mls/hr 11/05/17 19:07 11/05/17 19:28 Normal Saline IV 11/05/17 20:07 999 mls/hr STAT ONE Administration Ondansetron HCl 4 mg 11/05/17 19:36 11/05/17 19:45 Zofran IVPUSH 11/05/17 19:37 4 mg ONETIME ONE Administration Departure - Departure Time of Disposition: 22:04 Disposition: Home, Self-Care 01 Condition: Good Clinical Impression: UTI (urinary tract infection) Qualifiers: Urinary tract infection type: site unspecified Hematuria presence: without hematuria Qualified Code(s): N39.0 - Urinary tract infection, site not specified - Discharge Information Referrals: PCP,None [Primary Care Provider] - Forms: ED Department Discharge Additional Instructions: The following information is given to patients seen in the emergency department who are being discharged to home. This information is to outline your options for follow-up care. We provide all patients seen in our emergency department with a follow-up referral. The need for follow-up, as well as the timing and circumstances, are variable depending upon the specifics of your emergency department visit. If you don't have a primary care physician on staff, we will provide you with a referral. We always advise you to contact your personal physician following an emergency department visit to inform them of the circumstance of the visit and for follow-up with them and/or the need for any referrals to a consulting specialist. The emergency department will also refer you to a specialist when appropriate. This referral assures that you have the opportunity for follow-up care with a specialist. All of these measure are taken in an effort to provide you with optimal care, which includes your follow-up. Under all circumstances we always encourage you to contact your private physician who remains a resource for coordinating your care. When calling for follow-up care, please make the office aware that this follow-up is from your recent emergency room visit. If for any reason you are refused follow-up, please contact the [facility] Emergency Department at and asked to speak to the emergency department charge nurse. [facility] [address] [place] [id number] [facility] [address] [place] [id number] #1 Take antibiotic as instructed #2 Follow up with [employer] Developer #3 Return to ED as needed as discussed. - My Orders Last 24 Hours: My Active Orders 11/05/17 19:07 Sodium Chloride 0.9% [Saline Flush] 10 ml FLUSH ASDIRECTED PRN Sodium Chloride 0.9% [Saline Flush] 2.5 ml FLUSH ASDIRECTED PRN Saline Lock Insert [OM.PC] Stat 11/05/17 19:08 EKG Documentation Completion [RC] STAT 11/05/17 19:10 HCG QUALITATIVE,URINE [URCHEM] Stat UA W/MICROSCOPIC [URIN] Stat 11/05/17 20:28 Abdomen Ltd [US] Stat OB Transvaginal [US] Stat - Assessment/Plan Last 24 Hours: My Active Orders 11/05/17 19:07 Sodium Chloride 0.9% [Saline Flush] 10 ml FLUSH ASDIRECTED PRN Sodium Chloride 0.9% [Saline Flush] 2.5 ml FLUSH ASDIRECTED PRN Saline Lock Insert [OM.PC] Stat 11/05/17 19:08 EKG Documentation Completion [RC] STAT 11/05/17 19:10 HCG QUALITATIVE,URINE [URCHEM] Stat UA W/MICROSCOPIC [URIN] Stat 11/05/17 20:28 Abdomen Ltd [US] Stat OB Transvaginal [US] Stat
[2017-11-05] MEDS ORDERED: Ondansetron 4 MG/2 ML SDV IVPUSH ONE (19:36)
[2017-11-05 19:55] LABS: CHLORIDE,CL 104 mmol/L (98-107); SODIUM,NA 136 mmol/L (136-145)
[2017-11-05] MEDS ORDERED: Cephalexin 500 MG Cap PO ONE (22:36)
[2017-11-05 22:57] VITALS: BP 121/64
--- NOTE | 2017-11-06 16:40 | US ---
EXAM DATE: 11/05/17 PATIENT'S AGE: 27 Patient: BRENNON SMITH Facility: [place], [place] Site . Site : 1992 Study: US Abdomen [id number] 9:56:45 PM Ordering Physician: Doctor Izquierdo Final Report: INDICATION: EPIGASTRIC PAIN LIMITED ABDOMEN ULTRASOUND Technique: Multiple sonographic images were performed over the right upper quadrant. Findings: The gallbladder appears normal with no stones, wall thickening, or pericholecystic fluid identified. There was no sonographic Parada`s sign. No intrahepatic biliary dilatation is seen and the common bile duct is normal in caliber, measuring 1-2mm in diameter. The visualized portions of the liver, pancreas, and right kidney are unremarkable. IMPRESSION: Normal right upper quadrant ultrasound. MARY ANN BEAULIEU MD [employer] Dictated by: Paxton Beaulieu MD @ 11/05/2017 22:02:54 (Electronic Signature) Report Signed by Proxy. JOSEFA
--- NOTE | 2017-11-06 16:41 | US ---
EXAM DATE: 11/05/17 PATIENT'S AGE: 27 Patient: BRENNON SMITH Facility: [place], [place] Site . Site : 1990 Study: US OB Pelvis [id number] 9:57:50 PM Ordering Physician: Doctor Izquierdo Final Report: INDICATION: RUQ, EPIGASTRIC PAIN IN , SYNCOPE OBSTETRICAL ULTRASOUND Technique: Transvaginal scanning of the pelvis was performed. Findings: The uterus contains a gestational sac. The gestational sac contains a yolk sac and an embryonic pole which exhibits cardiac activity with a heart rate of 190BPM. The crown-rump length corresponds to an estimated menstrual age of 9 weeks 5 days and an CAN of 06/05/2018. The ovaries appear within normal limits bilaterally. No significant free pelvic fluid is identified. IMPRESSION: Live early intrauterine with estimated menstrual age of 9 weeks 5 days and CAN of 06/05/2018. MARY ANN BEAULIEU MD [employer] [facility] Dictated by: Paxton Beaulieu MD @ 11/05/2017 22:02:30 (Electronic Signature) Report Signed by Proxy. [facility]
== END 2017-11-05 22:40 | disposition home or self-care (01) ==
LOC: MW.ED 18:50
DX: N39.0 Urinary tract infection, site not specified (principal); Z33.1 Pregnant state, incidental; F17.210 Nicotine dependence, cigarettes, uncomplicated
CPT/HCPCS: 36415; 76705; 76817; 80053; 81001; 81025; 83690; 84484; 84702; 85025; 93005; 96361; 96374; 99284; A9270; J2405; J7040

== ENCOUNTER 2018-05-09 19:47 | Inpatient (IN) | payer MEDICAID ==
[2018-05-09] MEDS ORDERED: Carboprost Tromethamine 250 MCG/1 ML Amp IM PRN (20:17)
[2018-05-09] MEDS ORDERED: Methylergonovine 0.2 MG/1 ML Amp IM PRN (20:17)
[2018-05-09] MEDS ORDERED: Sodium Chloride 0.9% 10 ML Syringe FLUSH PRN (20:17)
[2018-05-09] MEDS ORDERED: Nalbuphine 10 MG/1 ML Vial IVPUSH PRN (20:17)
[2018-05-09] MEDS ORDERED: Lidocaine 1% 50 ML MDV INJECT PRN (20:17)
[2018-05-09] MEDS ORDERED: Misoprostol 200 MCG Tab PO PRN (20:17)
[2018-05-09] MEDS ORDERED: Butorphanol 1 MG/ML SDV IVPUSH PRN (20:17)
[2018-05-09] MEDS ORDERED: Tranexamic Acid 1,000 MG in Sodium Chloride 0.9% 100 ML IV PRN (20:17)
[2018-05-09] MEDS ORDERED: Water For Irrigation,Sterile 1,000 ML Container IRR PRN (20:17)
[2018-05-09] MEDS ORDERED: Sodium Chloride 0.9% 2.5 ML Syringe FLUSH PRN (20:17)
[2018-05-09] MEDS ORDERED: Lactated Ringers 1,000 ML IV SCH (20:30)
[2018-05-09] MEDS ORDERED: Oxytocin/0.9 % Sodium Chloride 30 UNIT/500 ML BAG IV SCH (20:30)
--- NOTE | 2018-05-09 21:10 | PCM.LDHP ---
L&D History of Present Illness - General Date of Service: 05/09/18 Admit Problem/Dx: Patient Status Order with Admit Dx/Problem 05/09/18 20:08 Patient Status [ADT] Routine 05/09/18 20:17 Patient Status [ADT] Routine Admission Diagnosis/Problem Admission Diagnosis/Problem Source of Information: Patient History Limitations: Reports: No Limitations - History of Present Illness Improves with: Reports: None Worsens with: Reports: None Associated Symptoms: Reports: N - Related Data Allergies/Adverse Reactions: Allergies Allergy/AdvReac Type Severity Reaction Status Date / Time No Known Allergies Allergy Verified 11/05/17 18:56 Home Medications: Home Meds Iron 0 mg PO DAILY 11/05/17 [History] Past Medical History - Past Health History Medical/Surgical History: Denies Medical/Surgical History HEENT History: Reports: Other (See Below) Other HEENT History: broken teeth and carries Cardiovascular History: Reports: None Respiratory History: Reports: Asthma, Other (See Below) Other Respiratory History: Sport's induced asthma Gastrointestinal History: Reports: None Genitourinary History: Reports: UTI, Recurrent 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: Musculoskeletal History: Reports: None Neurological History: Reports: None Psychiatric History: Reports: Anxiety, Depression Endocrine/Metabolic History: Reports: None Immunologic History: Reports: None Oncologic (Cancer) History: Reports: None - Infectious Disease History Infectious Disease History: Reports: Chicken Pox - Past Surgical History HEENT Surgical History: Reports: Adenoidectomy, Tonsillectomy Cardiovascular Surgical History: Reports: None Respiratory Surgical History: Reports: None GI Surgical History: Reports: None Neurological Surgical History: Reports: None Musculoskeletal Surgical History: Reports: None Dermatological Surgical History: Reports: None Social & Family History - Family History Family Medical History: Noncontributory Endocrine/Metabolic: Reports: Diabetes, Type I, Diabetes, type II Oncologic: Reports: Leukemia - Caffeine Use Caffeine Use: Reports: Soda H&P Review of Systems - Review of Systems: Review Of Systems: See Below General: Reports: No Symptoms HEENT: Reports: No Symptoms Pulmonary: Reports: No Symptoms Cardiovascular: Reports: No Symptoms Gastrointestinal: Reports: No Symptoms Genitourinary: Reports: No Symptoms Musculoskeletal: Reports: No Symptoms Skin: Reports: No Symptoms Psychiatric: Reports: No Symptoms Neurological: Reports: No Symptoms Hematologic/Lymphatic: Reports: No Symptoms Immunologic: Reports: No Symptoms L&D Exam - Exam Exam: See Below - OB Specific Fundal Height In cm: 37 Contraction Intensity: Moderate Movement: Active Heart Tones: Present Presentation: Vertex - Roper Score Roper Score Cervix Position: Anterior Roper Score Consistency: Soft Roper Score Effacement: >80% Roper Score Dilation: > 5 cm Roper Score 's Station: -1 ,0 Roper Score Total: 12 - Exam General: Alert, Oriented HEENT: PERRLA, Conjunctiva Clear, EACs Clear, EOMI, Hearing Intact, Mucosa Moist & [place], Nares Patent, Normal Nasal Septum, Posterior Pharynx Clear, TMs Clear Neck: Supple, Trachea Midline Lungs: Clear to Auscultation, Normal Respiratory Effort Cardiovascular: Regular Rate, Regular Rhythm GI/Abdominal Exam: Normal Bowel Sounds, Soft, Non-Tender, No Organomegaly, No Distention, No Abnormal Bruit, No Mass, Pelvis Stable Rectal Exam: Normal Exam, Normal Rectal Tone Genitourinary: Normal external exam, Normal bimanual exam, Normal speculum exam Back Exam: Normal Inspection, Full Range of Motion Extremities: Normal Inspection, Normal Range of Motion, Non-Tender, No Pedal Edema, Normal Capillary Refill Skin: Warm, Dry, Intact Neurological: Cranial Nerves Intact, Reflexes Equal Bilateral Psychiatric: Alert, Normal Affect, Normal Mood Problem List Initiated/Reviewed/Updated: Yes Orders Last 24hrs: Active Orders 24 hr Category Date Time Status Patient Status [ADT] Routine ADT 05/09/18 20:17 Active Heart Tones [RC] CONTINUOUS Care 05/09/18 20:17 Active Non Stress Test [RC] PER UNIT ROUTINE Care 05/09/18 20:08 Active Non Stress Test [RC] PER UNIT ROUTINE Care 05/09/18 20:17 Active May Shower [RC] ASDIRECTED Care 05/09/18 20:17 Active Notify Provider [RC] PRN Care 05/09/18 20:17 Active Up ad Ashtyn [RC] ASDIRECTED Care 05/09/18 20:08 Active Up ad Ashtyn [RC] ASDIRECTED Care 05/09/18 20:17 Active Vaginal Exam [RC] Click to Edit Care 05/09/18 20:08 Active Vaginal Exam [RC] PRN Care 05/09/18 20:17 Active Vital Signs [RC] PER UNIT ROUTINE Care 05/09/18 20:08 Active Vital Signs [RC] PER UNIT ROUTINE Care 05/09/18 20:17 Active CBC W/O DIFF,HEMOGRAM [HEME] Routine Lab 05/09/18 20:40 Received TYPE AND SCREEN [BBK] Routine Lab 05/09/18 20:40 Received Butorphanol [Stadol] Med 05/09/18 20:17 Active 1 mg IVPUSH Q1H PRN Carboprost Tromethamine [Hemabate DS] Med 05/09/18 20:17 Active 250 mcg IM ASDIRECTED PRN Lactated Ringers [Ringers, Lactated] 1,000 ml Med 05/09/18 20:30 Active IV ASDIRECTED Lidocaine 1% [Xylocaine 1%] Med 05/09/18 20:17 Active 50 ml INJECT ONETIME PRN Methylergonovine [Methergine] Med 05/09/18 20:17 Active 0.2 mg IM ASDIRECTED PRN Nalbuphine [Nubain] Med 05/09/18 20:17 Active 10 mg IVPUSH Q1H PRN Oxytocin/0.9 % Sodium Chloride [Oxytocin 30 Unit/500 ML Med 05/09/18 20:30 Active -NS] 30 unit in 500 ml IV TITRATE Sodium Chloride 0.9% [Saline Flush] Med 05/09/18 20:17 Active 10 ml FLUSH ASDIRECTED PRN Sodium Chloride 0.9% [Saline Flush] Med 05/09/18 20:17 Active 2.5 ml FLUSH ASDIRECTED PRN Tranexamic Acid [Cyklokapron] 1,000 mg Med 05/09/18 20:17 Active Sodium Chloride 0.9% [Normal Saline] 100 ml IV ONETIME Water For Irrigation,Sterile [Sterile Water for Med 05/09/18 20:17 Active Irrigation] 1,000 ml IRR ASDIRECTED PRN miSOPROStol [Cytotec] Med 05/09/18 20:17 Active 200 mcg PO ONETIME PRN Scalp Electrode [WOMSER] Per Unit Routine Oth 05/09/18 20:17 Ordered Peripheral IV Insertion Adult [OM.PC] Routine Oth 05/09/18 20:17 Ordered Resuscitation Status Routine Resus Stat 05/09/18 20:17 Ordered Medication Orders Butorphanol Tartrate (Stadol) 1 mg IVPUSH Q1H PRN PRN Reason: Pain Carboprost Tromethamine (Hemabate Ds) 250 mcg IM ASDIRECTED PRN PRN Reason: Post Hemorrhage Tranexamic Acid 1,000 mg/ (Sodium Chloride) 110 mls @ 660 mls/hr IV ONETIME PRN PRN Reason: Bleeding Lactated Ringer's (Ringers, Lactated) 1,000 mls @ 150 mls/hr IV ASDIRECTED MACARIO Oxytocin/Sodium Chloride (Oxytocin 30 Unit/500 Ml-Ns) 30 unit in 500 mls @ 500 mls/hr IV TITRATE MACARIO Lidocaine HCl (Xylocaine 1%) 50 ml INJECT ONETIME PRN PRN Reason: Laceration repair Methylergonovine Maleate (Methergine) 0.2 mg IM ASDIRECTED PRN PRN Reason: Post Hemorrhage Misoprostol (Cytotec) 200 mcg PO ONETIME PRN PRN Reason: Post Hemorrhage Nalbuphine HCl (Nubain) 10 mg IVPUSH Q1H PRN PRN Reason: Pain (severe 7-10) Sodium Chloride (Saline Flush) 10 ml FLUSH ASDIRECTED PRN PRN Reason: Keep Vein Open Sodium Chloride (Saline Flush) 2.5 ml FLUSH ASDIRECTED PRN PRN Reason: Keep Vein Open Sterile Water (Sterile Water For Irrigation) 1,000 ml IRR ASDIRECTED PRN PRN Reason: delivery
[2018-05-09] MEDS ORDERED: Ibuprofen 400 MG Tab PO PRN (21:39)
[2018-05-09] MEDS ORDERED: Benzocaine/Menthol 20%-0.5% Spray 78 GM Cannister TOP PRN (21:39)
[2018-05-09] MEDS ORDERED: Docusate Sodium 100 MG Cap PO PRN (21:39)
[2018-05-09] MEDS ORDERED: Lanolin 100% Cream 7 GM Tube TOP PRN (21:39)
[2018-05-09] MEDS ORDERED: oxyCODONE 5 MG Tab PO PRN (21:39)
[2018-05-09] MEDS ORDERED: Bisacodyl 10 MG Supp RECTAL PRN (21:39)
[2018-05-09] MEDS ORDERED: Acetaminophen 500 MG Tab PO PRN ×2 (21:39)
[2018-05-09] MEDS ORDERED: Witch Hazel Medicated Pads 40/Jar TOP PRN (21:39)
--- NOTE | 2018-05-09 22:19 | OR ---
SURGEON: Reza Beverly MD DATE OF PROCEDURE: Ms. Grant is 27 years old multiparous. She is 36 plus weeks. She is followed in our clinic and primarily by Sameera Bartlett, our nurse personnel director. She has a history of premature . She is presented today in active labor. At the time of admission, she was 5 cm, complete, vertex and -1 station with bulging bag of water. The patient declined epidural and heart rate was category 1. She has progressed nicely. She was able to accomplish normal spontaneous vaginal delivery and fetus cried immediately. The veneer measurer attended the delivery because the patient is 36 weeks. Placenta delivered spontaneous, complete, and intact without any problem. ESTIMATED BLOOD LOSS: 250 to 300 mL. heart rate was category 1 through the entire process of labor. There was no complication in the labor and delivery process. ONFORE / TRAV /[id number]
[2018-05-09] MEDS: Ibuprofen 800 MG Tab PO PRN (22:55)
--- NOTE | 2018-05-10 07:26 | PCM.PNPP ---
- General Info Date of Service: 05/10/18 Subjective Update: The patient is a 27 year old female, , who is post day 1 from vaginal delivery. She reports she is doing well. She reports her pain is controlled. Her bleeding is similar her normal bleeding but getting better. She has been ambulating and going to the bathroom without issues. She is bottle and . Functional Status: Reports: Pain Controlled - Review of Systems General: Reports: No Symptoms HEENT: Reports: No Symptoms Pulmonary: Reports: No Symptoms Cardiovascular: Reports: No Symptoms Gastrointestinal: Reports: No Symptoms Genitourinary: Reports: No Symptoms Musculoskeletal: Reports: No Symptoms Skin: Reports: No Symptoms Neurological: Reports: No Symptoms Psychiatric: Reports: No Symptoms - General Info Date of Service: 05/10/18 - Patient Data Vital Signs - Most Recent: Last Vital Signs Temp 97.8 F 05/10/18 04:03 Pulse 91 05/10/18 04:03 Resp 16 05/10/18 04:03 BP 113/55 L 05/10/18 04:03 Pulse Ox 97 05/10/18 04:03 Weight - Most Recent: 81.647 kg Lab Results - Last 24 Hours: Laboratory Results - last 24 hr 05/09/18 05/09/18 05/10/18 Range/Units 20:40 20:40 04:48 WBC 10.13 (4.0-11.0) K/uL RBC 4.65 (4.30-5.90) M/uL Hgb 10.9 L 9.7 L (12.0-16.0) g/dL Hct 34.9 L 31.1 L (36.0-46.0) % MCV 75.1 L (80.0-98.0) fL MCH 23.4 L (27.0-32.0) pg MCHC 31.2 (31.0-37.0) g/dL RDW Std Deviation 38.5 (28.0-62.0) fl RDW Coeff of Rose 14 (11.0-15.0) % Plt Count 221 (150-400) K/uL MPV 10.20 (7.40-12.00) fL Nucleated RBC % 0.0 /100WBC Nucleated RBCs # 0 K/uL Blood Type A POSITIVE Antibody Screen NEGATIVE Med Orders - Current: Current Medications Acetaminophen (Tylenol Extra Strength) 500 mg PO Q4H PRN PRN Reason: Pain Acetaminophen (Tylenol Extra Strength) 1,000 mg PO Q4H PRN PRN Reason: Pain Last Admin: 05/10/18 06:00 Dose: 1,000 mg Benzocaine/Menthol (Dermoplast Pain Relief 20%-0.5% Pomerene) 78 gm TOP ASDIRECTED PRN PRN Reason: Perineal Comfort Measure Bisacodyl (Dulcolax) 10 mg RECTAL ONETIME PRN PRN Reason: Constipation Docusate Sodium (Colace) 100 mg PO BID PRN PRN Reason: Constipation Emollient Ointment (Lansinoh Hpa) 0 gm TOP ASDIRECTED PRN PRN Reason: Sore Nipples Last Admin: 05/09/18 22:54 Dose: 1 applic Ibuprofen (Motrin) 400 mg PO Q4H PRN PRN Reason: Pain Ibuprofen (Motrin) 800 mg PO Q6H PRN PRN Reason: Pain Last Admin: 05/09/18 22:55 Dose: 800 mg Oxycodone HCl (Oxycodone) 5 mg PO Q2H PRN PRN Reason: Pain Last Admin: 05/10/18 07:03 Dose: 5 mg Witch Corrie (Tucks) 1 pad TOP ASDIRECTED PRN PRN Reason: comfort care Discontinued Medications Butorphanol Tartrate (Stadol) 1 mg IVPUSH Q1H PRN PRN Reason: Pain Carboprost Tromethamine (Hemabate Ds) 250 mcg IM ASDIRECTED PRN PRN Reason: Post Hemorrhage Tranexamic Acid 1,000 mg/ (Sodium Chloride) 110 mls @ 660 mls/hr IV ONETIME PRN PRN Reason: Bleeding Lactated Ringer's (Ringers, Lactated) 1,000 mls @ 150 mls/hr IV ASDIRECTED MACARIO Oxytocin/Sodium Chloride (Oxytocin 30 Unit/500 Ml-Ns) 30 unit in 500 mls @ 500 mls/hr IV TITRATE MACARIO Lidocaine HCl (Xylocaine 1%) 50 ml INJECT ONETIME PRN PRN Reason: Laceration repair Methylergonovine Maleate (Methergine) 0.2 mg IM ASDIRECTED PRN PRN Reason: Post Hemorrhage Misoprostol (Cytotec) 200 mcg PO ONETIME PRN PRN Reason: Post Hemorrhage Nalbuphine HCl (Nubain) 10 mg IVPUSH Q1H PRN PRN Reason: Pain (severe 7-10) Sodium Chloride (Saline Flush) 10 ml FLUSH ASDIRECTED PRN PRN Reason: Keep Vein Open Sodium Chloride (Saline Flush) 2.5 ml FLUSH ASDIRECTED PRN PRN Reason: Keep Vein Open Sterile Water (Sterile Water For Irrigation) 1,000 ml IRR ASDIRECTED PRN PRN Reason: delivery - Infant Interaction Disposition, : to Nursery Other Infant Feeding: bottle and - Recovery Exam Fundal Tone: Firm Fundal Level: 1 Fingerbreadths Below Umbilicus Lochia Amount: Scant Episiotomy/Laceration: None Bladder Status: Voiding Urinary Elimination: Voided - Exam General: Alert, Oriented, Cooperative Neck: Supple Lungs: Clear to Auscultation, Normal Respiratory Effort Cardiovascular: Regular Rate, Regular Rhythm GI/Abdominal Exam: Normal Bowel Sounds, Soft Extremities: No Pedal Edema Skin: Warm, Dry, Intact Neurological: No New Focal Deficit Psy/Mental Status: Alert, Normal Affect, Normal Mood - Problem List Review Problem List Initiated/Reviewed/Updated: Yes - My Orders Last 24 Hours: My Active Orders 05/09/18 21:39 Patient Status [ADT] Routine May Shower [RC] ASDIRECTED Up ad Ashtyn [RC] ASDIRECTED Vital Signs [RC] PER UNIT ROUTINE Acetaminophen [Tylenol Extra Strength] 1,000 mg PO Q4H PRN Acetaminophen [Tylenol Extra Strength] 500 mg PO Q4H PRN Benzocaine/Menthol [Dermoplast Pain Relief 20%-0.5% Pomerene] 78 gm TOP ASDIRECTED PRN Bisacodyl [Dulcolax] 10 mg RECTAL ONETIME PRN Docusate Sodium [Colace] 100 mg PO BID PRN Ibuprofen [Motrin] 400 mg PO Q4H PRN Ibuprofen [Motrin] 800 mg PO Q6H PRN Lanolin [Lansinoh HPA] See Dose Instructions TOP ASDIRECTED PRN Witch Corrie [Tucks] 1 pad TOP ASDIRECTED PRN oxyCODONE 5 mg PO Q2H PRN Assess Lochia [WOMSER] Per Unit Routine Assess Uterine Involution [WOMSER] Per Unit Routine Peripheral IV Discontinue [OM.PC] Routine Resuscitation Status Routine 05/10/18 Breakfast Regular Diet [DIET] - Plan Plan:: The patient is a 27 year old female, , who is post day 1 from . Patient doing well. Continue routine post care.
[2018-05-10] MEDS: Ibuprofen 800 MG Tab PO PRN (10:35)
[2018-05-11 09:59] VITALS: BP 131/73
== END 2018-05-11 11:08 | disposition home or self-care (01) | DRG 807 ==
LOC: MW.OBCHECK 19:47 → MW.OB 19:50 → MW.OBCHECK 20:17 → MW.OB 20:17 → OBSVTOIN 21:30 → MW.OB 23:00
PROVIDERS: ADMIT Obstetrics & Gynecology; ATTEND Obstetrics & Gynecology
PROC: 10E0XZZ Delivery of Products of Conception, External Approach (ICD-10-PCS; principal; 2018-05-09)
DX: O80 Encounter for full-term uncomplicated delivery (principal); Z37.0 Single live birth; Z3A.36 36 weeks gestation of pregnancy
CPT/HCPCS: 36415; 59025; 59409; 85014; 85018; 85027; 86850; 86900; 86901; A9270-GY

== ENCOUNTER 2021-09-22 19:48 | Emergency (ER) | payer MEDICAID ==
[2021-09-22] MEDS ORDERED: Aspirin 325 MG Tab PO STA (20:22)
[2021-09-22 21:35] VITALS: BP 123/78; PULSE 78
== END 2021-09-22 21:25 | disposition home or self-care (01) ==
LOC: MW.ED 19:48
DX: M79.605 Pain in left leg (principal)
CPT/HCPCS: 73590; 99283; A9270

== ENCOUNTER 2021-10-26 22:25 | Emergency (ER) | payer MEDICAID ==
[2021-10-26] MEDS ORDERED: Ondansetron 4 MG/2 ML SDV IVPUSH ONE ×2 (22:37)
[2021-10-26] MEDS ORDERED: Sodium Chloride 0.9% 1,000 ML IV ONE (22:37)
[2021-10-26] MEDS ORDERED: Pantoprazole 40 MG in Sodium Chloride 0.9% 10 ML IVPUSH ONE (22:38)
[2021-10-26 23:17] LABS: CARBON DIOXIDE,CO2 23.9 mmol/L (21.0-32.0); POTASSIUM,K 4.1 mmol/L (3.5-5.1)
[2021-10-27 00:25] VITALS: BP 128/74; PULSE 87
== END 2021-10-27 00:25 | disposition home or self-care (01) ==
LOC: MW.ED 22:25
DX: U07.1 COVID-19 (principal); K92.0 Hematemesis; F17.210 Nicotine dependence, cigarettes, uncomplicated
CPT/HCPCS: 36415; 71045; 80053; 81003; 83690; 83735; 84703; 85025; 85610; 85730; 86850; 86900; 86901; 87635; 96361; 96374; 96375; 99285; C9113; J2405; J3490; J7030; 99283; U0002

== ENCOUNTER 2022-05-29 12:36 | Emergency (ER) | payer MEDICAID ==
[2022-05-29] MEDS ORDERED: Sodium Chloride 0.9% 1,000 ML IV ONE (12:44)
[2022-05-29] MEDS ORDERED: Ketorolac 30 MG/ML SDV IVPUSH ONE (12:44)
[2022-05-29 13:38] LABS: BLOOD UREA NITROGEN,BUN 7 mg/dL (7.0-18.0); CARBON DIOXIDE,CO2 25.1 mmol/L (21.0-32.0); CHLORIDE,CL 104 mmol/L (98-107); GLUCOSE RANDOM 93 mg/dL (74-106); SODIUM,NA 139 mmol/L (136-145)
[2022-05-29 13:44] LABS: ESTIMATED GFR 70 mL/min (>60)
[2022-05-29 14:03] VITALS: BP 116/78; PULSE 78
== END 2022-05-29 14:07 | disposition home or self-care (01) ==
LOC: MW.ED 12:36
DX: R07.2 Precordial pain (principal)
CPT/HCPCS: 36415; 71045; 80053; 84443; 84484; 85025; 93005; 96361; 96374; 99285; J1885; J7030

== ENCOUNTER 2022-11-12 22:12 | Emergency (ER) | payer MEDICAID ==
[2022-11-12] MEDS ORDERED: Lidocaine 4% 1 each Patch TOP STA (22:43)
[2022-11-12] MEDS ORDERED: Acetaminophen 325 MG Tab PO ONE (22:43)
[2022-11-12] MEDS ORDERED: Ibuprofen 600 MG Tab PO ONE (22:43)
[2022-11-12 23:26] VITALS: BP 108/70; PULSE 94
== END 2022-11-12 23:25 | disposition home or self-care (01) ==
LOC: MW.ED 22:12
DX: M79.631 Pain in right forearm (principal); M79.632 Pain in left forearm
CPT/HCPCS: 99283; A9270

== ENCOUNTER 2022-12-25 18:52 | Emergency (ER) | payer SELFPAY ==
[2022-12-25] MEDS ORDERED: Bacitracin Oint 28.35 GM Tube TOP ONE (20:25)
[2022-12-25] MEDS ORDERED: Diphtheria,Pertussis(Acell),Tetanus Vaccine 0.5 ML Syringe IM ONE (20:25)
[2022-12-25 20:45] VITALS: BP 124/82; PULSE 74
== END 2022-12-25 20:45 | disposition home or self-care (01) ==
LOC: MW.ED 18:52
DX: S91.331A Puncture wound without foreign body, right foot, initial encounter (principal); L03.115 Cellulitis of right lower limb; F17.210 Nicotine dependence, cigarettes, uncomplicated; Z23 Encounter for immunization; W22.8XXA Striking against or struck by other objects, initial encounter
CPT/HCPCS: 73620; 90471; 90715; 99283; A9270

== ENCOUNTER 2023-03-16 21:19 | Emergency (ER) | payer MEDICAID ==
[2023-03-16] MEDS ORDERED: Sodium Chloride 0.9% 10 ML Syringe FLUSH PRN (22:57)
[2023-03-16] MEDS ORDERED: Sodium Chloride 0.9% 2.5 ML Syringe FLUSH PRN (22:57)
[2023-03-16] MEDS ORDERED: Sodium Chloride 0.9% 1,000 ML IV ONE (22:58)
[2023-03-17 00:19] LABS: BASOPHILS ABSOLUTE AUTO 0.08 K/uL (0.00-0.20); BASOPHILS PERCENT AUTO 0.9 % (0.0-1.0); EOSINOPHILS ABSOLUTE AUTO 0.05 K/uL (0.00-0.45); EOSINOPHILS PERCENT AUTO 0.6 % (0.0-6.0); HEMATOCRIT 40.8 % (37.0-47.0); HEMOGLOBIN 14.6 g/dL (12.0-16.0); IMMATURE GRAN ABSOLUTE AUTO 0.02 K/uL (0.00-0.05); IMMATURE GRAN PERCENT AUTO 0.2 % (0.0-0.4); LYMPHOCYTES ABSOLUTE AUTO 2.75 K/uL (1.00-4.80); LYMPHOCYTES PERCENT AUTO 32.4 % (24.0-44.0); MEAN CORPUSCULAR HEMOGLOBIN 31.1 pg (28.0-32.0); MEAN CORPUSCULAR HGB CONC 35.8 g/dL (32.0-36.0); MEAN PLATELET VOLUME 9.2 fL (9.4-12.3); MONOCYTES ABSOLUTE AUTO 0.86 K/uL (0.00-0.80); MONOCYTES PERCENT AUTO 10.1 % (0.0-8.0); NEUTROPHILS ABSOLUTE AUTO 4.73 K/uL (1.80-7.70); NEUTROPHILS PERCENT AUTO 55.8 % (41.0-71.0); PLATELET COUNT,PLT 277 K/uL (150-400); RED BLOOD CELL COUNT 4.69 M/uL (4.10-5.30); WHITE BLOOD CELL COUNT,WBC 8.49 K/uL (3.9-11.3)
[2023-03-17 00:51] LABS: A/G RATIO 1.1 (0.9-1.6); ALBUMIN 3.9 g/dL (3.4-5.0); BILIRUBIN TOTAL 0.2 mg/dL (0.2-1.0); CALCIUM 9.4 mg/dL (8.5-10.1); CREATININE 1.2 mg/dL (0.6-1.0); EST CRCL DRUG DOSING (CG) 61.68 mL/min; POTASSIUM,K 3.1 mmol/L (3.5-5.1); PROTEIN TOTAL,TP 7.5 g/dL (6.4-8.2); TSH ULTRASENSITIVE 1.48 uIU/mL (0.36-3.74)
[2023-03-17 01:06] LABS: APPEARANCE,URINE CLOUDY; BILIRUBIN,URINE NEGATIVE (NEGATIVE); COLOR,URINE YELLOW; GLUCOSE,URINE NEGATIVE (NEGATIVE); KETONES,URINE NEGATIVE (NEGATIVE); LEUKOCYTE ESTERASE,URINE NEGATIVE (NEGATIVE); NITRITE,URINE POSITIVE (NEGATIVE); OCCULT BLOOD,URINE NEGATIVE (NEGATIVE); PROTEIN,URINE NEGATIVE (NEGATIVE)
[2023-03-17 01:14] LABS: RBC,URINE 0-2 (0-2/HPF)
[2023-03-17 01:15] LABS: AMORPHOUS SEDIMENT,URINE MODERATE (NEGATIVE); BACTERIA,URINE 4+ (NEGATIVE); EPITHELIAL CELLS,URINE FEW (NONE-FEW); MUCUS,URINE LIGHT (NONE-MOD)
[2023-03-17 02:37] VITALS: BP 111/56; PULSE 66
== END 2023-03-17 02:35 | disposition home or self-care (01) ==
LOC: MW.ED 21:19
DX: R00.2 Palpitations (principal); R10.30 Lower abdominal pain, unspecified; R42 Dizziness and giddiness; J45.909 Unspecified asthma, uncomplicated
CPT/HCPCS: 36415; 71045; 80053; 81001; 83690; 84443; 84703; 85025; 87086; 87088; 87186; 93005; 99285; J3490; J7030; 93010; 99283

== ENCOUNTER 2023-04-19 17:50 | Emergency (ER) | payer MEDICAID ==
[2023-04-19 18:58] LABS: CORONAVIRUS COVID-19 NAA NEGATIVE (NEGATIVE); INFLUENZA A NAA NEGATIVE (NEGATIVE); INFLUENZA B NAA POSITIVE (NEGATIVE)
[2023-04-19 20:53] VITALS: BP 110/65; PULSE 92
== END 2023-04-19 19:41 | disposition home or self-care (01) ==
LOC: MW.ED 17:50
DX: J10.1 Influenza due to other identified influenza virus with other respiratory manifestations (principal); F17.210 Nicotine dependence, cigarettes, uncomplicated; Z20.822 Contact with and (suspected) exposure to COVID-19
CPT/HCPCS: 0240U; 99284

== ENCOUNTER 2023-12-09 22:02 | Emergency (ER) | payer MEDICAID ==
[2023-12-09] MEDS: Ibuprofen 600 MG Tab PO ONE (23:00)
[2023-12-10 02:08] VITALS: BP 132/87; PULSE 78
== END 2023-12-10 00:26 | disposition home or self-care (01) ==
LOC: MW.ED 22:02
DX: L02.212 Cutaneous abscess of back [any part, except buttock and flank] (principal); M25.552 Pain in left hip
CPT/HCPCS: 73502; 99283; A9270

== ENCOUNTER 2024-04-20 20:14 | Emergency (ER) | payer MEDICAID ==
[2024-04-20] MEDS: Cyclobenzaprine 10 MG Tab PO ONE (22:24)
[2024-04-20] MEDS: Ondansetron 4 MG Tab.DIS PO ONE (22:25)
[2024-04-20] MEDS: Lidocaine 4% 1 each Patch TOP SCH (22:31)
[2024-04-20 22:41] VITALS: BP 125/88; PULSE 80
== END 2024-04-20 22:42 | disposition home or self-care (01) ==
LOC: MW.ED 20:14
DX: S09.90XA Unspecified injury of head, initial encounter (principal); Z75.8 Other problems related to medical facilities and other health care; J45.909 Unspecified asthma, uncomplicated; W01.0XXA Fall on same level from slipping, tripping and stumbling without subsequent striking against object, initial encounter
CPT/HCPCS: 70450; 72125; 99283; A9270

== ENCOUNTER 2024-04-24 17:33 | Emergency (ER) | payer MEDICAID ==
[2024-04-24 19:31] VITALS: BP 127/82; PULSE 80
== END 2024-04-24 19:31 | disposition home or self-care (01) ==
LOC: MW.ED 17:33
DX: R20.2 Paresthesia of skin (principal); J45.909 Unspecified asthma, uncomplicated; F17.210 Nicotine dependence, cigarettes, uncomplicated; Z75.8 Other problems related to medical facilities and other health care
CPT/HCPCS: 70450; 70450-26; 99284

== ENCOUNTER 2024-11-26 14:46 | Emergency (ER) | payer SELFPAY ==
[2024-11-26] MEDS: Ketorolac 30 MG/ML SDV IM ONE (16:59)
[2024-11-26] MEDS: Lidocaine 2% Viscous Solution 15 ML UD PO ONE (17:13)
[2024-11-26 17:54] LABS: BASOPHILS ABSOLUTE AUTO 0.08 K/uL (0.00-0.20); BASOPHILS PERCENT AUTO 1.0 % (0.0-1.0); EOSINOPHILS ABSOLUTE AUTO 0.03 K/uL (0.00-0.45); EOSINOPHILS PERCENT AUTO 0.4 % (0.0-6.0); IMMATURE GRAN ABSOLUTE AUTO 0.02 K/uL (0.00-0.05); IMMATURE GRAN PERCENT AUTO 0.2 % (0.0-0.4); LYMPHOCYTES ABSOLUTE AUTO 2.95 K/uL (1.00-4.80); LYMPHOCYTES PERCENT AUTO 36.1 % (24.0-44.0); MEAN PLATELET VOLUME 9.1 fL (9.4-12.3); MONOCYTES ABSOLUTE AUTO 0.77 K/uL (0.00-0.80); MONOCYTES PERCENT AUTO 9.4 % (0.0-8.0); NEUTROPHILS ABSOLUTE AUTO 4.32 K/uL (1.80-7.70); NEUTROPHILS PERCENT AUTO 52.9 % (41.0-71.0); NRBC ABSOLUTE 0.00 K/uL (0.00-0.02); NRBC PERCENT 0.0 /100WBC (0.0-0.2); PLATELET COUNT,PLT 254 K/uL (150-400); RED BLOOD CELL COUNT 4.93 M/uL (4.10-5.30); WHITE BLOOD CELL COUNT,WBC 8.17 K/uL (3.9-11.3)
[2024-11-26 18:20] LABS: INR 0.97 (0.86-1.11); PTT,PARTIAL THROMBOPLSTIN TIME 27.0 SEC (23.9-30.7)
[2024-11-26 18:24] LABS: A/G RATIO 1.3 (0.9-1.6); ALANINE AMINOTRANSFERASE,ALT 27 IU/L (14-63); ASPARTATE AMNIOTRANSFERASE,AST 20 IU/L (15-37); BILIRUBIN TOTAL 0.3 mg/dL (0.2-1.0); BLOOD UREA NITROGEN,BUN 10 mg/dL (7.0-18.0); CARBON DIOXIDE,CO2 24.3 mmol/L (21.0-32.0); CHLORIDE,CL 104 mmol/L (98-107); CREATININE 1.1 mg/dL (0.6-1.0); EST CRCL DRUG DOSING (CG) 66.07 mL/min; GLUCOSE RANDOM 108 mg/dL (74-106); POTASSIUM,K 4.0 mmol/L (3.5-5.1); PROTEIN TOTAL,TP 7.2 g/dL (6.4-8.2); SODIUM,NA 138 mmol/L (136-145)
[2024-11-26 18:26] LABS: GLUCOSE,URINE NEGATIVE (NEGATIVE); OCCULT BLOOD,URINE LARGE (NEGATIVE)
[2024-11-26 18:30] LABS: APPEARANCE,URINE SLT CLOUDY
[2024-11-26 18:34] LABS: ESTIMATED GFR 68 mL/min (>60)
[2024-11-26 18:35] LABS: EPITHELIAL CELLS,URINE FEW (NONE-FEW)
[2024-11-26] MEDS: cefTRIAXone 1 GM in Water For Injection, Sterile 10 ML IVPUSH ONE (19:27)
[2024-11-26 20:38] VITALS: BP 115/86; PULSE 70
[2024-11-26 21:07] LABS: AMPHETAMINES SCREEN, URINE NEGATIVE (CUTOFF=500); BUPRENORPHINE SCREEN,URINE NEGATIVE (CUTOFF=10); METHADONE SCREEN, URINE NEGATIVE (CUTOFF=200); METHAMPHETAMINES SCREEN, URINE NEGATIVE (CUTOFF=500); OXYCODONE SCREEN,URINE NEGATIVE (CUT0FF=100); PCP SCREEN,URINE NEGATIVE (CUTOFF=25); THC SCREEN,URINE 20 NG/ML NEGATIVE (CUTOFF=50)
== END 2024-11-26 21:00 | disposition critical access hospital (66) ==
LOC: MW.ED 14:46
DX: R20.2 Paresthesia of skin (principal); N39.0 Urinary tract infection, site not specified; Z77.098 Contact with and (suspected) exposure to other hazardous, chiefly nonmedicinal, chemicals; Z79.899 Other long term (current) drug therapy; Z75.3 Unavailability and inaccessibility of health-care facilities
CPT/HCPCS: 36415; 70450; 70496; 70498; 80053; 80305; 81001; 84484; 85025; 85610; 85730; 96372; 96374; 96375; 99284; A9270; J0696; J1100; J1885; J7030; 99285